=== PATIENT | female | born 1995 | race Caucasian/White ===

== ENCOUNTER 2021-10-16 12:34 | Outpatient (REF) | payer BC, SELFPAY ==
--- NOTE | 2021-10-16 10:15 | PAPFT_PTH ---
PATIENT: Ilsa Yi LOC: [facility] U#:[id number] AGE/SX: 26/F ROOM: RE10/16/[address]: Kaley Ramirez MD : [id number] BED: DIS: 10/16/2021 SPEC #: [id number] RECD: 10/16/21 13:02 STATUS: LYN REKal #: [id number] JOCELYN: 10/16/21 10:[address]: Kaley Ramirez DEPT: [facility] Cytology RECD BY: Latrice Bonilla Tissues: 1 - CX/ENDOCX FOR PAP SMEARS Procedures: PAP THIN PREP/UVM Screening Comments: [id number]
== END 2021-10-16 12:35 | disposition home or self-care (01) ==
LOC: LBN 12:34
PROVIDERS: Visit Provider Obstetrics & Gynecology
DX: Z12.4 Encounter for screening for malignant neoplasm of cervix (principal)
CPT/HCPCS: 88142

== ENCOUNTER 2021-11-08 15:46 | Outpatient (CLI) | payer BC, SELFPAY ==
[2021-11-08 16:34] LABS: HCG Quant, Pregnancy 272 mIU/mL (1-3)
== END 2021-11-08 15:47 | disposition home or self-care (01) ==
LOC: LBO 15:47
PROVIDERS: Visit Provider Obstetrics & Gynecology
DX: O26.851 Spotting complicating pregnancy, first trimester (principal); Z3A.01 Less than 8 weeks gestation of pregnancy
CPT/HCPCS: 36415; 84702

== ENCOUNTER 2021-11-10 02:30 | Outpatient (CLI) | payer BC, SELFPAY ==
[2021-11-10 16:30] LABS: HCG Quant, Pregnancy 594 mIU/mL (1-3)
== END 2021-11-10 16:05 | disposition home or self-care (01) ==
LOC: LBO 02:30
PROVIDERS: Obstetrics & Gynecology; Visit Provider Obstetrics & Gynecology
DX: O26.851 Spotting complicating pregnancy, first trimester (principal); Z3A.01 Less than 8 weeks gestation of pregnancy
CPT/HCPCS: 84702

== ENCOUNTER 2021-11-16 03:20 | Outpatient (CLI) | payer BC, SELFPAY ==
[2021-11-16 17:40] LABS: HCG Quant, Pregnancy 6067 mIU/mL (1-3)
== END 2021-11-16 03:21 | disposition home or self-care (01) ==
LOC: LBO 03:20
PROVIDERS: Obstetrics & Gynecology; Visit Provider Obstetrics & Gynecology
DX: O26.851 Spotting complicating pregnancy, first trimester (principal); Z3A.01 Less than 8 weeks gestation of pregnancy
CPT/HCPCS: 36415; 84702

== ENCOUNTER 2022-01-03 02:54 | Outpatient (CLI) | payer BC, SELFPAY ==
[2022-01-03 11:02] LABS: Kit/Specimen SENT
[2022-01-03 11:09] LABS: Abs Immature Grans 0.02 10^3/uL (0.0-0.06); Absolute Basophil Count 0.04 10^3/uL (0.0-0.2); Absolute Eosinophil Count 0.12 10^3/uL (0.0-0.7); Absolute Lymphocyte Count 2.32 10^3/uL (1.2-3.4); Absolute Monocyte Count 0.59 10^3/uL (0.1-0.8); Absolute Neutrophil Count 5.19 10^3/uL (1.2-6.7); Basophils % 0.5; Eosinophils % 1.4; HCT 37.7 % (36.0-46.0); HGB 13.3 g/dL (11.2-15.7); Immature Grans % 0.2; MCH 30.6 pg (27.0-33.0); MCHC 35.3 % (32.0-36.0); MCV 86.7 fL (80-95); MPV 9.7 fL (8.0-11.0); Monocytes % 7.1; Neutrophils % 62.8; Nucleated RBC 0 %; Platelet Count 236 10^3/uL (130-400); RBC 4.35 10^6/uL (3.93-5.22); RDW 12.7 % (11.7-14.6); RDW-SD 39.9 fL; WBC 8.28 10^3/uL (4.4-10.8)
[2022-01-03 11:59] LABS: TSH (W/Ref FT4) 3.27 uIU/mL (0.36-3.74)
[2022-01-04 09:58] LABS: Hepatitis B Surface Ag Negative (Negative)
[2022-01-04 10:21] LABS: Rubella IgG Ab (UVM) Positive (See Note); Varicella IgG Antibody Negative (See Note)
[2022-01-04 10:50] LABS: HIV-1/2 Ag & Ab Screen Negative (Negative)
[2022-01-04 11:33] LABS: Hepatitis C Ab w Rflx HCV PCR Negative (Negative)
[2022-01-07 21:59] LABS: Syphilis IgG w/Reflex Nonreactive (Nonreactive)
[2022-01-14 01:34] LABS: Specimen WB Whole Blood
[2022-01-14 23:37] LABS: Result Summary NEGATIVE; Specimen WB Whole Blood
== END 2022-01-03 02:55 | disposition home or self-care (01) ==
LOC: LBO 02:54
PROVIDERS: Advanced Practice Midwife; Obstetrics & Gynecology; Visit Provider Advanced Practice Midwife
DX: O26.851 Spotting complicating pregnancy, first trimester
CPT/HCPCS: 81329; 86787; 86803; 86850; 86900; 86901; 87340; 87389; 81220; 84443; 84702; 85025; 86762; 86780

== ENCOUNTER 2022-01-03 16:31 | Outpatient (REF) | payer BC, SELFPAY ==
[2022-01-03 13:24] LABS: *AMPHETAMINES SCREEN URINE Negative (Negative); *BARBITURATES SCREEN URINE Negative (Negative); *BENZODIAZEPINES SCREEN URINE Negative (Negative); Cannabinoids THC Negative (Negative); Cocaine Screen,Urine Negative (Negative); METHADONE URINE SCREEN Negative (Negative); OPIATES URINE SCREEN Negative (Negative); Tricyclic Antidepressants Negative (Negative)
[2022-01-09 09:43] LABS: Buprenorphine Negative ng/mL (Cutoff: 5.0); Norbuprenorphine Negative ng/mL (Cutoff: 2.5)
== END 2022-01-03 16:32 | disposition home or self-care (01) ==
LOC: LBN 16:31
PROVIDERS: Visit Provider Advanced Practice Midwife
DX: Z34.91 Encounter for supervision of normal pregnancy, unspecified, first trimester
CPT/HCPCS: 80307; 87086

== ENCOUNTER 2022-02-05 14:49 | Outpatient (REF) | payer BC, SELFPAY | END 2022-02-05 14:50 | disposition home or self-care (01) | LOC: LBN 14:49 | PROVIDERS: Visit Provider Advanced Practice Midwife | DX: O26.892 Other specified pregnancy related conditions, second trimester (principal); N89.8 Other specified noninflammatory disorders of vagina; Z3A.16 16 weeks gestation of pregnancy | CPT/HCPCS: 87480; 87510; 87660 ==

== ENCOUNTER 2022-02-19 02:42 | Outpatient (CLI) | payer BC, SELFPAY ==
[2022-02-19 09:16] LABS: FREE T4 0.88 ng/dL (0.76-1.46); TSH 5.23 uIU/mL (0.36-3.74)
[2022-02-19 17:42] LABS: Thyroperoxidase Antibody <28 U/mL (<=60)
[2022-02-21 13:48] LABS: AFP 90.2 ng/mL; Calculated age at EDD 27 years; Cigarette smoking status non-Smoker; GA used in risk estimate Scan estimate; IVF Pregnancy No; Initial or repeat testing Initial testing; Insulin dependent diabetes No; Maternal Weight 149 lbs; Number of Fetuses 1; Physician Phone Number 802-748-7300; RECOMMENDED FOLLOW UP None.; Results Summary Normal risk
== END 2022-02-19 02:43 | disposition home or self-care (01) ==
LOC: LBO 02:42
PROVIDERS: Visit Provider Advanced Practice Midwife
DX: Z34.92 Encounter for supervision of normal pregnancy, unspecified, second trimester (principal); R79.89 Other specified abnormal findings of blood chemistry
CPT/HCPCS: 36415; 82105; 84439; 84443; 86376

== ENCOUNTER 2022-04-02 17:35 | Outpatient (CLI) | payer BC, SELFPAY ==
--- NOTE | 2022-04-02 17:46 | PGE_ITS ---
Date of Service Date of service: 04/02/22 Time of Service: 17:46 Assessment and Plan Assessment and plan (1) Antepartum bleeding, second trimester: Status: Acute Assessment and plan: FHTs 130 confirmed with doppler. Reviewed precautions. I recommended rest this evening, avoiding intercourse and exercise x 1 week. Call with recurrence of bright red bleeding or no movement. Signs of labor reviewed. I suggested possibly taking a day off tomorrow to rest. Subjective Subjective Interval history since last seen: Ilsa is here with a complaint of a small amount of bright spotting. She has experienced bleeding earlier in the as well. She denies intercourse, exercise or straining. 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 She has not noticed movement today while she was working. Exam GI Palpation: soft
== END 2022-04-02 17:50 | disposition home or self-care (01) ==
LOC: BCD 17:37 → OBS 17:41
PROVIDERS: Visit Provider Advanced Practice Midwife
DX: O46.92 Antepartum hemorrhage, unspecified, second trimester (principal)

== ENCOUNTER 2022-04-30 03:02 | Outpatient (CLI) | payer BC, SELFPAY ==
[2022-04-30 12:14] LABS: HCT 35.5 % (36.0-46.0); HGB 12.2 g/dL (11.2-15.7); MCHC 34.4 % (32.0-36.0); MCV 90 fL (80-95); MPV 9.2 fL (8.0-11.0); Platelet Count 211 10^3/uL (130-400); RBC 3.94 10^6/uL (3.93-5.22); RDW 12.6 % (11.7-14.6); RDW-SD 41.4 fL; WBC 10.53 10^3/uL (4.4-10.8)
[2022-04-30 12:21] LABS: Glucose,1 Hr (Glucola) 87 mg/dL (80-140)
[2022-05-01 15:13] LABS: Chlamydia Result Negative (Negative); GC Result Negative (Negative)
== END 2022-04-30 03:03 | disposition home or self-care (01) ==
LOC: LBO 03:02
PROVIDERS: Advanced Practice Midwife; Visit Provider Advanced Practice Midwife
DX: O26.893 Other specified pregnancy related conditions, third trimester (principal); R30.0 Dysuria; R39.15 Urgency of urination; Z3A.28 28 weeks gestation of pregnancy
CPT/HCPCS: 36415; 82950; 85027; 87491; 87591; 87086

== ENCOUNTER 2022-04-30 16:47 | Outpatient (REF) | payer BC, SELFPAY | END 2022-04-30 16:48 | disposition home or self-care (01) | LOC: LBN 16:47 | PROVIDERS: Visit Provider Advanced Practice Midwife ==

== ENCOUNTER 2022-05-28 02:43 | Outpatient (CLI) | payer BC, SELFPAY ==
[2022-05-28 12:37] LABS: TSH (W/Ref FT4) 2.85 uIU/mL (0.36-3.74)
== END 2022-05-28 02:44 | disposition home or self-care (01) ==
LOC: LBO 02:43
PROVIDERS: Visit Provider Advanced Practice Midwife
DX: O26.893 Other specified pregnancy related conditions, third trimester (principal); R79.89 Other specified abnormal findings of blood chemistry; Z3A.32 32 weeks gestation of pregnancy
CPT/HCPCS: 36415; 84443

== ENCOUNTER → 2022-06-05 02:22 | Outpatient (CLI) | payer BC, SELFPAY ==
--- NOTE | 2022-06-05 09:15 | DI.US_ITS ---
Exam(s) US OB NORMAN WEIGHT EXAM: US OB NORMAN WEIGHT CLINICAL HISTORY: covid infection during ,U07.1. TECHNIQUE: Transabdominal obstetrical ultrasound performed. COMPARISON: No exams were available for comparison FINDINGS:: Number of fetuses: One. position: Vertex. Placental location: Anterior no evidence of previa. BIOMETRIC DATA: BPD: 86mm = 34+4 weeks HC: 307mm = 34+2 weeks AC: 292mm = 33+1 weeks FL: 67 mm = 34+ 4 weeks EFW: 2278 Gms = 49 % Composite Age: 34+ 1 weeks EDC by ultrasound: 16 July 2022 Heart Rate: 155 BPM Amniotic fluid index: 14.0 cm. Amount of fluid is visually within normal limits. IMPRESSION: size and weight are within the expected range. DATA REPOSITORY:
== END ==
PROVIDERS: Visit Provider Advanced Practice Midwife
DX: U07.1 COVID-19; O98.513 Other viral diseases complicating pregnancy, third trimester; O46.93 Antepartum hemorrhage, unspecified, third trimester; Z3A.34 34 weeks gestation of pregnancy
CPT/HCPCS: 76816

== ENCOUNTER 2022-06-25 15:41 | Outpatient (REF) | payer BC, SELFPAY | END 2022-06-25 15:42 | disposition home or self-care (01) | LOC: LBN 15:41 | PROVIDERS: Visit Provider Advanced Practice Midwife | DX: Z34.93 Encounter for supervision of normal pregnancy, unspecified, third trimester (principal); Z36.85 Encounter for antenatal screening for Streptococcus B; Z3A.36 36 weeks gestation of pregnancy | CPT/HCPCS: 87081 ==

== ENCOUNTER 2022-07-25 04:01 | Inpatient (IN) | payer BC, SELFPAY ==
[2022-07-25] VITALS (32 sets, daily range): BP systolic 105–136; BP diastolic 62–90; PULSE 67–85; RESP 18–20; TEMP 36.8–37.1; O2SAT 96–98; BMI 26.1
--- NOTE | 2022-07-25 03:56 | W.PM.OBHPL1 ---
Date of service: 07/25/22 Time of Service: 03:56 Assessment and Plan Assessment and plan (1) Uterine contractions: Status: Acute Assessment and plan: 1. will do NST and assess contraction pattern, once reactive will allow for intermittent doppler assessment. (2) Vaginal discharge in third trimester, antepartum: Status: Acute Assessment and plan: 1. ROM + obtained, expect confirmation of ROM 2. Will admit once confirmed and draw admission labs with TSH and CMP (due to mild BP elevation on arrival) as well as screen for COVID 3. Expectant management at this time. Low risk for shoulder dystocia, pre-eclampsia and PPH on arrival. 4. Expect NVD. KH OB-HPI Labor/Delivery History of Present Illness Reason for Visit: Rule out labor Chief Complaint: Uterine Contractions; Suspected Rupture of Membranes , Associated Signs and Symptoms of Suspected ROM: reported gush of fluid and need to change pad due to leaking. KH . ZACH Calculator Estimated Delivery Date Method Current WG Current Estimate 07/20/22 Ultrasound #1 40w 5d Other Estimates 07/22/22 Ultrasound #2 40w 3d 07/20/22 Conception 40w 5d Comments: Reports gush of fluid at midnight and then again several times after that. Clear fluid. Had enough fluid on her adult diaper she was wearing to change as well. Reports contractions began shortly after that and have increased in intensity and frequency. JAYCE History of Present Expected Delivery Route/Plan - CNM FOB/ - Marlo Yi (first child) BB yes to circ wishes include use of tub, shower, pt or her mom to cut cord Varicella Non-Immune, offer vaccine PP GBS negative Specific Issues/Plan 1. Pt & vaccinated, pt also boosted, both had COVID infection, tested 12/04/21 @ 7wks 1a. 33 week growth US scheduled for 06/05/22: wt is 49th percentile, NORMAN 14 2. Desires all genetic screening & AFP single marker: cfDNA low risk x5 male fetus, SMA/CF neg 3. FOB has spina bifida occulta, offered [facility] level 2 ultrasound, pt declines. AFP drawn 02/05= nml risk for NTD 4. Initial OB: TSH 3.27- Discuss with patient, TSH and T4 drawn 02/19 - TSH- 5.33, T4- 0.88; TPO nml 4a. TSH 2.85 at 32 weeks, no further testing needed due to improvement without medications per consult with Dr. Stover. 5. First trimester spotting, suggestion of heart-shaped uterus on early ultrasound 5a. persistent vaginal bleeding, vaginal pathogen screen 02/05=negative 6. Varicella non-immune, discussed w/pt, she desires vaccination 7. Pt requests LC consult, ordered 05/28 - met with Elen CRAWFORD Assessment: History Reviewed & Current Review of Systems All systems reviewed & are unremarkable except as noted in HPI and below (vaginal discharge since 0001.) PFSH All Active Problems (Updated 07/25/22 @ 04:08 by Gena Valencia CNM) Vaginal discharge in third trimester, antepartum (Acute) Uterine contractions (Acute) COVID-19 virus infection (Acute) Antepartum bleeding, second trimester (Acute) Elevated TSH (Acute) Susceptible to varicella (non-immune), currently (Acute) (Acute) Medical History Lipoma Pelvic pain Vaginal discharge during , antepartum Surgical History Hx of tonsillectomy Social History Smoking/Tobacco Use Status: Never Smoking risk assessment performed?: Yes Alcohol Intake: current Alcohol Intake frequency: a few times a month Drug use: Never Substance use type: does not use Adopted: No Caregiver/Support person: No Foster care: No Household members: spouse Housing: house Communication Needs: None Education Level: college Do you need help understanding health information?: Never 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 and animals: Yes Pets and animals: dog(s) Sexually active: Yes Do you think of yourself as: straight/heterosexual Current gender identity: female What is your relationship status?: How often do you talk on the phone with friends or family?: three or more times per week How often do you attend jehovah's witness or alevism services?: decline to answer Do you belong to any clubs or organized social groups?: yes Panel score (0-1 are the most socially isolated patients): 3 What type of physical activity do you participate in: weight lifting Frequency: 3-4 times per week Seatbelt use: always Helmet use: Yes Drive intox or ride w/intox dedicated local truck driver: No Water heater temp set <120 deg: Yes Working smoke detector in home: Yes Fire extinguisher in home: Yes Carbon monox detector in home: Yes Firearms in home: Yes Do you feel safe at home: Yes Do you feel safe in your relationship?: Yes Victim of physical abuse: No Victim of emotional abuse: No Victim of sexual abuse: No Female Reproductive History Menstrual Duration of menses: 6-7 days control method: natural family planning History History 1 Para 0 Hx # Term Pregnancies 0 Multiple births 0 Hx # Pregnancies 0 Ectopic pregnancies 0 AB induced 0 Hx Number of Living Children 0 AB spontaneous 0 Meds Allergies and Home Medications Allergies Allergy/AdvReac Type Severity Reaction Status Date / Time No Known Allergies Allergy Verified 07/25/22 04:04 Home Medications Medication Instructions Recorded Confirmed Type prenat.vits,roshan,syg-mhfo-cqnsi 1 tab PO DAILY 10/16/21 07/16/22 History omega-3 fatty acids 1,250 mg 1,250 mg PO DAILY 03/05/22 07/16/22 History capsule Lactobacillus 25 billion 1 cap PO DAILY 04/05/22 07/16/22 History cell-Bifido 25 billion [id number]-[id number] capsule (Women's Probiotic) vitamin D3 25 mcg-vitamin K2 20 cap PO PRN 04/05/22 07/16/22 History mcg-olive leaf extract 250 mg capsule Exam Physical Exam Vital Signs Reviewed: Yes Narrative: Mild BP elevation. Plan will be to check pre-eclampsia labs with blood work once ROM plus is verified. KH Constitutional Constitutional: mild distress (anxious and excited about labor) Detailed Labor and Delivery Exam Dilation: 3 Effacement (%): 90 station: -1 Position: BONNY Cervix position: posterior Consistency: soft Rodriguez Score: Cervical Points Exam 0 1 2 3 Dilation Closed 1-2cm 3-4 cm 5-6cm Effacement 0-30% 40-50% 60-70% 80% Consistency Firm Medium Soft Station -3 -2 -1,0 +1,+2 Position Posterior Mid Anterior RODRIGUEZ Score(Cervical Ripeness Score): 9 Amniotic Membrane Status: Ruptured Rupture Method: Spontaneous Amniotic Fluid: Clear Contraction Frequency(min): 2-3 Contraction Duration(sec): 40-60 Contraction Intensity: Mild/Moderate Fetus A Heart Rate Baseline: 120 Monitor Accelerations: 10 X 10 Monitor Decelerations: None Variability: Minimal (1-5 BPM) Est. Weight: 7 lb Date of Membrane Rupture: 07/25/22 Time of Membrane Rupture: 00:01 HEENT Exam HEENT Exam: Normal Neck Exam Neck Exam: Normal (on visual exam) Chest/Brest/Axilla Exam Chest Exam: Not Done Breast Exam Breast Exam: Not Done Respiratory Exam Respiratory Exam: Normal Cardiovascular Exam Cardiovascular Exam: Normal Abdominal Exam Abdominal Exam: Normal (gravid uterus, size equals dates) Rectal Exam Rectal Exam: Not Done Exam Exam: Normal (3/90/-1 posterior, soft. No fluid with exam. ROM + pending.) Extremities Exam Extremities Exam: Normal Back/Spine/Pelvis Exam Back Exam: Normal Pelvis Adequate: Yes Skin Exam Skin Exam: Normal Neurological Exam Neurological Exam: Normal Psychiatric Exam Psychiatric Exam: Normal Results Results Group Beta Strep: Negative Blood Type: A+ Rubella Status: Immune Varicella Immunity: Nonimmune Lab Results: Panorama CfDNA low risk, male. HIV/HepB/HepC/Syphillis/GC CT negative. TSH 2.85 on 05/28 and 1 hour glucose 87 Risk Assessment Risk for Shoulder Dystocia Historical/Initial OB: NEGATIVE FOR: Pelvic Abnormality, Pre- BMI>30, Previous Shoulder Dystocia or Previous Macrosomia Increased Risk?: No Delivery Plan @ 36wks: NVD expected. Delivery Plan @ 40 wks: NVD Risk for Pre-Eclampsia Date Initiated/Initials: not indicated. JK Yes, if one or more: NEGATIVE FOR: Hx Pre-E/Gest HTN, Chronic HTN, Multiple Gestation, Pre-gestational DM, Renal Disease, Systemic Lupus or APA Syndrome Yes, if 2 or more: POSITIVE FOR: Nulliparity; NEGATIVE FOR: Age>= 35 yrs, >10yr btwn pregnancies, BMI>30, ethinicty, Mother/Sister w/ Pre-E or Previous IUGR Risk for Post- Hemorrhage Initial: NEGATIVE FOR: Multiple Gestation, Previous PPH, Known Clotting Deficiency, Grand Multiparity or Anticoagulation At Risk?: No Counseled re: Active Management: Yes Date/Initials: 07/25/22 Risks Reviewed Risks Reviewed Upon Admission: Yes
[2022-07-25 04:35] LABS: ROM Plus Positive
--- NOTE | 2022-07-25 04:45 | W.PM.OBNL1 ---
Date of service: 07/25/22 Time of Service: 04:45 Informed Consent Informed Consent: Other (Nitrous Oxide) Pelvic Exam Comments: VE deferred Contractions Monitor Mode: Palpation Contraction Frequency(min): 3 Intensity: Moderate Fetus A Monitor: External (US) (reactive and reassuring prior to discontinuing EFM) Heart Rate Baseline: 120 Variability: Moderate (6-25 BPM) Categories: Category I Accelerations: 15 X 15 Decelerations: None Amniotic Membrane Status: Ruptured (confirmed with ROM +) Rupture Method: Spontaneous Amniotic Fluid: Clear Date of Membrane Rupture: 07/25/22 Time of Membrane Rupture: 00:01 Assessment and Plan Assessment and plan (1) Uterine contractions: Status: Acute Assessment and plan: 1. Confirmation of ROM obtained 2. Admitted and will do labs, intermittent doppler FHR and assessment now that reactive NST is obtained. 3. Nitrous Oxide for pain management as needed 4. Expect NVD. Objective Laboratory Results Membranes Rupture Positive 07/25/22 04:00 Subjective Interval history since last seen: working well with contractions. discussing option of Nitrous Oxide for pain management. Interventions Pain Management Interventions: Comfort Measures , Birthing Ball, Breathing/Relaxation Techniques and Position Change and Nitrous Oxide , reviewed use of Nitrous Oxide if needed, verbalizes understanding. JAYCE .
[2022-07-25 05:25] LABS: ALT 18 U/L (14-59); AST 20 U/L (15-37); Albumin 2.9 g/dL (3.4-5.0); Alkaline Phosphatase 132 U/L (46-116); Anion Gap 10.9 mmol/L (3-11); BUN 12 mg/dL (7-18); Bilirubin, Total 0.3 mg/dL (0.2-1.0); CO2 22.1 mmol/L (21.0-32.0); CREATININE 0.9 mg/dL (0.55-1.02); Calcium 8.9 mg/dL (8.5-10.1); Chloride 103 mmol/L (98-107); Glucose 121 mg/dL (74-106); Potassium 3.8 mmol/L (3.5-5.1); Sodium 136 mmol/L (136-145); Total Protein 7.3 g/dL (6.4-8.2)
[2022-07-25 05:26] LABS: Source Nasal/Nares
[2022-07-25 05:26] LABS: HCT 38.1 % (36.0-46.0); HGB 13.3 g/dL (11.2-15.7); MCH 30.6 pg (27.0-33.0); MCHC 34.9 % (32.0-36.0); MCV 88 fL (80-95); MPV 11.2 fL (8.0-11.0); Platelet Count 160 10^3/uL (130-400); RBC 4.34 10^6/uL (3.93-5.22); RDW 12.4 % (11.7-14.6); RDW-SD 39.8 fL; WBC 12.48 10^3/uL (4.4-10.8)
[2022-07-25 05:29] LABS: COVID-19 PCR Negative (Negative)
[2022-07-25 05:36] LABS: TSH (W/Ref FT4) 7.26 uIU/mL (0.36-3.74)
[2022-07-25 05:53] LABS: FREE T4 0.95 ng/dL (0.76-1.46)
--- NOTE | 2022-07-25 09:38 | W.PM.OBNL1 ---
Date of service: 07/25/22 Time of Service: 09:38 Informed Consent Informed Consent: Regional Anesthesia (epidural reviewed) and Other (Nitrous Oxide) Pelvic Exam Dilation: 4 Effacement (%): 90 station: -1 Cervix Position: mid Consistency: soft Contractions Monitor Mode: Palpation Contraction Frequency(min): 2-3 Contraction Duration(sec): 60 Intensity: Moderate/Strong Fetus A Monitor: Doppler (reassuring heart rate documented) Assessment and Plan Assessment and plan (1) Normal labor: Status: Acute Assessment and plan: 1. current pain management with behavioral methods is no longer effective as is nitrous oxide. We discussed alternatives of IV pain medication or epidural. Patient is not interested in the sleepiness of IV pain medication and requests. Epidural. 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 KH Objective Abnormal lab results 07/25/22 07/25/22 07/25/22 Range/Units 04:53 04:53 04:53 WBC 12.48 H (4.4-10.8) 10^3/uL MPV 11.2 H (8.0-11.0) fL Glucose 121 H (74-106) mg/dL Alkaline Phosphatase 132 H (46-116) U/L Albumin 2.9 L (3.4-5.0) g/dL TSH 7.26 H (0.36-3.74) uIU/mL Temp Pulse Resp BP 98.6 F 83 18 132/85 07/25/22 06:52 07/25/22 04:58 07/25/22 04:58 07/25/22 04:58 Laboratory Results WBC 12.48 10^3/uL (4.4-10.8) H 07/25/22 04:53 RBC 4.34 10^6/uL (3.93-5.22) 07/25/22 04:53 Hgb 13.3 g/dL (11.2-15.7) 07/25/22 04:53 Hct 38.1 % (36.0-46.0) 07/25/22 04:53 MCV 88 fL (80-95) 07/25/22 04:53 MCH 30.6 pg (27.0-33.0) 07/25/22 04:53 MCHC 34.9 % (32.0-36.0) 07/25/22 04:53 RDW 12.4 % (11.7-14.6) 07/25/22 04:53 Plt Count 160 10^3/uL (130-400) 07/25/22 04:53 MPV 11.2 fL (8.0-11.0) H 07/25/22 04:53 Sodium 136 mmol/L (136-145) 07/25/22 04:53 Potassium 3.8 mmol/L (3.5-5.1) 07/25/22 04:53 Chloride 103 mmol/L (98-107) 07/25/22 04:53 Carbon Dioxide 22.1 mmol/L (21.0-32.0) 07/25/22 04:53 Anion Gap 10.9 mmol/L (3-11) 07/25/22 04:53 BUN 12 mg/dL (7-18) 07/25/22 04:53 Creatinine 0.9 mg/dL (0.55-1.02) 07/25/22 04:53 Estimated GFR/1.73 m2 >= 60.00 (mL/min/1.73m2) 07/25/22 04:53 Glucose 121 mg/dL (74-106) H 07/25/22 04:53 Calcium 8.9 mg/dL (8.5-10.1) 07/25/22 04:53 Total Bilirubin 0.3 mg/dL (0.2-1.0) 07/25/22 04:53 AST 20 U/L (15-37) 07/25/22 04:53 ALT 18 U/L (14-59) 07/25/22 04:53 Alkaline Phosphatase 132 U/L (46-116) H 07/25/22 04:53 Total Protein 7.3 g/dL (6.4-8.2) 07/25/22 04:53 Albumin 2.9 g/dL (3.4-5.0) L 07/25/22 04:53 TSH 7.26 uIU/mL (0.36-3.74) H 07/25/22 04:53 Free T4 0.95 ng/dL (0.76-1.46) 07/25/22 04:53 Membranes Rupture Positive 07/25/22 04:00 COVID-19 Source Nasal/Nares 07/25/22 04:00 SARS-CoV-2 (PCR) Negative (Negative) 07/25/22 04:00 Patient ABO/Rh A Positive 07/25/22 04:53 Antibody Screen NEGATIVE 07/25/22 04:53 Subjective Interval history since last seen: Patient requests review of additional pain management options. Nirtous and shower / massage are no longer effective enough. We reviewed IV pain mediation and or epidural as additional options. Patient desires eipdural but will consider turning it off when pushing as she is fearful that she will push too hard and have laceration. I have reviewed both options of IV pain medication and epidural with risks, benefits, potential side effects and desired outcome. Patient has decided she would like epidural. DERECK paged. KH Results Hemoglobin/Hematocrit: Hgb 13.3 g/dL (11.2-15.7) 07/25/22 04:53 Hct 38.1 % (36.0-46.0) 07/25/22 04:53 Abnormal Lab Findings: Abnormal Labs 07/25/22 07/25/22 07/25/22 04:53 04:53 04:53 WBC 12.48 H MPV 11.2 H Glucose 121 H Alkaline Phosphatase 132 H Albumin 2.9 L TSH 7.26 H
--- NOTE | 2022-07-25 09:45 | ANES.PREOP_ITS ---
General Info Date of Service Date Performed: 07/25/22 Height: 5 ft 10 in Weight: 82.554 kg Body Mass Index (BMI): 26.1 Meds Allergies and Home Medications Allergies Allergy/AdvReac Type Severity Reaction Status Date / Time No Known Allergies Allergy Verified 07/25/22 04:04 Home Medication Medication Instructions Recorded prenat.vits,roshan,[id number]-cbreh 1 tab PO DAILY 10/16/21 omega-3 fatty acids 1,250 mg 1,250 mg PO DAILY 03/05/22 capsule Lactobacillus 25 billion 1 cap PO DAILY 04/05/22 cell-Bifido 25 billion dzim-IES-[id number] capsule (Women's Probiotic) vitamin D3 25 mcg-vitamin K2 20 cap PO PRN 04/05/22 mcg-olive leaf extract 250 mg capsule Current Visit Medications: Current Medications Generic Name Dose Route Start Last Admin Trade Name Freq PRN Reason Stop Dose Admin Ringer's Solution 1,000 mls @ 125 mls/hr 07/25/22 04:45 IV INFUSION PRN maternal indications IV Miscellaneous Supplies 1 each 07/25/22 04:41 Iv Access IV DIRECTED PRN indications Ondansetron HCl 4 mg 07/25/22 05:05 Ondansetron 4 Mg/2 Ml Vial IVP Q4H PRN PRN Pantoprazole Sodium 40 mg 07/25/22 04:16 Pantoprazole 40 Mg Tabcr PO ONCE PRN indigestion Sodium Chloride 0 ml 07/25/22 04:41 Normal Saline Flush 10 Ml Syr IVP PRN PRN PFSH Active Problems Active Problems: Problem Status Onset Code Normal labor O80, Z37.9 Vaginal discharge in third trimester, antepartum O26.893, N89.8 Uterine contractions O47.9 COVID-19 virus infection U07.1 Antepartum bleeding, second trimester O46.92 Elevated TSH R79.89 Susceptible to varicella (non-immune), currently O09.899, Z28.3 Z34.90 Medical History Medical History Lipoma Pelvic pain Vaginal discharge during , antepartum Surgical History Surgical History Hx of tonsillectomy Tobacco Smoking/Tobacco Use Status: Never Alcohol Alcohol Intake: current Alcohol intake frequency: a few times a month Substance Use Substance use: Never Substance use type: does not use Prental History History 1 Para 0 Hx # Term Pregnancies 0 Multiple births 0 Hx # Pregnancies 0 Ectopic pregnancies 0 AB induced 0 Hx Number of Living Children 0 AB spontaneous 0 Vital Signs and Lab Results Vital Signs Most Recent Vital Signs in EMR: Most Recent Vital Signs Temp Pulse Resp BP 37.0 C 83 18 132/85 07/25/22 06:52 07/25/22 04:58 07/25/22 04:58 07/25/22 04:58 Lab Results Result Diagrams: 07/25/22 04:53 07/25/22 04:53 Blood Type / Crossmatch: Patient ABO/Rh A Positive 07/25/22 Antibody Screen NEGATIVE 07/25/22 Complete Blood Count: White Blood Count 12.48 10^3/uL (4.4-10.8) H 07/25/22 04:53 Red Blood Count 4.34 10^6/uL (3.93-5.22) 07/25/22 04:53 Hemoglobin 13.3 g/dL (11.2-15.7) 07/25/22 04:53 Hematocrit 38.1 % (36.0-46.0) 07/25/22 04:53 Platelet Count 160 10^3/uL (130-400) 07/25/22 04:53 Complete Metabolic Panel: Sodium Level 136 mmol/L (136-145) 07/25/22 04:53 Potassium Level 3.8 mmol/L (3.5-5.1) 07/25/22 04:53 Chloride Level 103 mmol/L (98-107) 07/25/22 04:53 Carbon Dioxide Level 22.1 mmol/L (21.0-32.0) 07/25/22 04:53 Blood Urea Nitrogen 12 mg/dL (7-18) 07/25/22 04:53 Creatinine 0.9 mg/dL (0.55-1.02) 07/25/22 04:53 Estimated GFR/1.73 m2 >= 60.00 (mL/min/1.73m2) 07/25/22 04:53 Calcium Level 8.9 mg/dL (8.5-10.1) 07/25/22 04:53 Albumin 2.9 g/dL (3.4-5.0) L 07/25/22 04:53 Glucose Level 121 mg/dL (74-106) H 07/25/22 04:53 Liver Function Panel: Alanine Aminotransferase (ALT/SGPT) 18 U/L (14-59) 07/25/22 04: 53 Aspartate Amino Transf (AST/SGOT) 20 U/L (15-37) 07/25/22 04:53 Coagulation Panel: No Data to Display Cardiac Panel: No Data to Display Arterial Blood Gas: No Data to Display Venous Blood Gas: No Data to Display Pancreas Panel: No Data to Display Thyroid Panel: Thyroid Stimulating Hormone (TSH) 7.26 uIU/mL (0.36-3.74) H 07/25/22 04:53 Infectious Disease: Coronavirus (COVID-19)(PCR) Negative (Negative) 07/25/22 04:00 Coronavirus 2019 Source Nasal/Nares 07/25/22 04:00 Blood Cultures: No Data to Display Toxicology Panel: No Data to Display Panel: No Data to Display Anesthesia Assessment and Plan Anesthesia History Personal History: No History of Anesthesia Complications Family History: No Family History of Anesthesia Complications Exercise Tolerance Exercise Tolerance: Metabolic Equivalents>4 Cardiac & Pulmonary Exam Cardiac Exam: Normal S1/S2 Heart Sounds Pulmonary Exam: Clear Bilateral Breath Sounds Implantable Cardiac Device Does patient have a Pacemaker or an ICD?: No Airway Exam Known Difficult Airway: No Mallampati Class: 2 Mouth Opening: Normal (> 3cm) Thyromental Distance: Greater than 3 cm Neck Range of Motion: Full ROM Neck Circumference: Normal Teeth Condition: Normal Dentition ASA Classification ASA Score: ASA 2 Emergency Case?: No NPO Status NPO Status: Full Stomach Status Status: Other Anesthesia Plan Resuscitation Status: Full Code Anesthesia Technique: Epidural Anesthesia Airway Planned: Natural Airway Pain Management: Epidural Monitors Used: Standard Monitors Preoperative Comments:: 26 yo female requested epidural for labor pain. Sig PMHx: denies major. Plt 160
[2022-07-25] MEDS: Normal Saline Flush 10 ML SYR IVP (10:00)
[2022-07-25] MEDS: Lactated Ringers 1,000 ML 125 ML IV ×2 (10:19→17:27)
[2022-07-25] MEDS: FentaNYL/ROPIvacaine 2 mcg/ml and 0.1% 200 ML CADD Cassette EP ×2 (10:30→19:36)
--- NOTE | 2022-07-25 10:47 | W.ANESNEU ---
Epidural/Spinal Catheter Date Performed: 07/25/22 Procedure Start: 10:24 Procedure Stop: 10:33 Requesting Provider: Gena Valencia Procedure Location: Obstetrics Reason Performed: Labor Epidural Standard Monitors Applied: ECG, Blood Pressure and SpO2 Patient Position: Sitting Sedation Given (Indicate Dose Given): No Sedation given Patient Mental Status: Awake Sterility: Hand Hygiene, Surgical Cap, Surgical Mask, Sterile Gloves, Sterile Drape/Sheet and Chlorhexidine Procedure Location: L3-L4 Interspace Epidural Needle: Tuohy 18 Gauge Needle Length: 3.5 Inch Needle Approach: Midline Epidural Procedure: Skin Prepped, 1% Lidocaine to skin and subcutaneous tissue with 25G needle, JOAN to Saline Used and Epidural Catheter Placed Catheter Placed?: Catheter Placed Test Dose (Indicate Dose Given): 3ml 1.5% Lidocaine with 1:200K Epinephrine Given Loss of Resistance Depth (cm): 5 Catheter depth at skin (cm): 10 Dressing: Sorbaview Dressing Placed and Mastisol Used Epidural Provider Bolus (Indicate Dose Given): Total Ropivacaine 0.1% with Fentanyl 2mcg/ml Given from pump. (ml) (7 mL + 5 mL) Dose:: 12 mL Additives (Indicate Dose Given ): None Infusion Medication: Medication Infusion Began Medication Infusion: Ropivacaine 0.1% with Fentanyl 2mcg/ml Maintenance Infusion Rate (ml/hour): 10 PCEA Bolus Dose (ml): 5 Block Level: N/A Paresthesia: None Ultrasound: Used to mildred site Number of Attempts (See previous attempts in note section): 1 Procedure Tolerated: No Complications and Patient tolerated well Procedure Outcome: Successful Procedure Comment:: More dense on the left, positioned to right side with improved relief. Performed By: Chaitanya Mon
--- NOTE | 2022-07-25 11:16 | W.PM.OBNL1 ---
Date of service: 07/25/22 Time of Service: 11:16 Informed Consent Informed Consent: Regional Anesthesia (epidural reviewed) and Other (Nitrous Oxide) Contractions Monitor Mode: External Contraction Frequency(min): 4 Contraction Duration(sec): 60 Intensity: Moderate Fetus A Monitor: External (US) Heart Rate Baseline: 120 Variability: Moderate (6-25 BPM) Categories: Category I Accelerations: 15 X 15 Decelerations: None Assessment and Plan Assessment and plan (1) Normal labor: Status: Acute Assessment and plan: 1. Good relief from epidural 2. Patient is trying to nap, plan to repeat VE at 1300 unless otherwise indicated by maternal status. KH (2) Elevated TSH: Status: Acute Assessment and plan: 1. TSH today 7.26, patient is asymptomatic. Consult with Dr. Stover done, no intervention at this time required. Will plan to repeat at 6 week PP visit and refer as indicated. JAYCE Objective Abnormal lab results 07/25/22 07/25/22 07/25/22 Range/Units 04:53 04:53 04:53 WBC 12.48 H (4.4-10.8) 10^3/uL MPV 11.2 H (8.0-11.0) fL Glucose 121 H (74-106) mg/dL Alkaline Phosphatase 132 H (46-116) U/L Albumin 2.9 L (3.4-5.0) g/dL TSH 7.26 H (0.36-3.74) uIU/mL Temp Pulse Resp BP Pulse Ox 98.6 F 73 18 131/72 97 07/25/22 06:52 07/25/22 10:58 07/25/22 04:58 07/25/22 10:58 07/25/22 10:56 Laboratory Results WBC 12.48 10^3/uL (4.4-10.8) H 07/25/22 04:53 RBC 4.34 10^6/uL (3.93-5.22) 07/25/22 04:53 Hgb 13.3 g/dL (11.2-15.7) 07/25/22 04:53 Hct 38.1 % (36.0-46.0) 07/25/22 04:53 MCV 88 fL (80-95) 07/25/22 04:53 MCH 30.6 pg (27.0-33.0) 07/25/22 04:53 MCHC 34.9 % (32.0-36.0) 07/25/22 04:53 RDW 12.4 % (11.7-14.6) 07/25/22 04:53 Plt Count 160 10^3/uL (130-400) 07/25/22 04:53 MPV 11.2 fL (8.0-11.0) H 07/25/22 04:53 Sodium 136 mmol/L (136-145) 07/25/22 04:53 Potassium 3.8 mmol/L (3.5-5.1) 07/25/22 04:53 Chloride 103 mmol/L (98-107) 07/25/22 04:53 Carbon Dioxide 22.1 mmol/L (21.0-32.0) 07/25/22 04:53 Anion Gap 10.9 mmol/L (3-11) 07/25/22 04:53 BUN 12 mg/dL (7-18) 07/25/22 04:53 Creatinine 0.9 mg/dL (0.55-1.02) 07/25/22 04:53 Estimated GFR/1.73 m2 >= 60.00 (mL/min/1.73m2) 07/25/22 04:53 Glucose 121 mg/dL (74-106) H 07/25/22 04:53 Calcium 8.9 mg/dL (8.5-10.1) 07/25/22 04:53 Total Bilirubin 0.3 mg/dL (0.2-1.0) 07/25/22 04:53 AST 20 U/L (15-37) 07/25/22 04:53 ALT 18 U/L (14-59) 07/25/22 04:53 Alkaline Phosphatase 132 U/L (46-116) H 07/25/22 04:53 Total Protein 7.3 g/dL (6.4-8.2) 07/25/22 04:53 Albumin 2.9 g/dL (3.4-5.0) L 07/25/22 04:53 TSH 7.26 uIU/mL (0.36-3.74) H 07/25/22 04:53 Free T4 0.95 ng/dL (0.76-1.46) 07/25/22 04:53 Membranes Rupture Positive 07/25/22 04:00 COVID-19 Source Nasal/Nares 07/25/22 04:00 SARS-CoV-2 (PCR) Negative (Negative) 07/25/22 04:00 Patient ABO/Rh A Positive 07/25/22 04:53 Antibody Screen NEGATIVE 07/25/22 04:53 Vital Signs Reviewed: Yes Subjective Interval history since last seen: Much more comfortable status post epidural. Is experiencing some bloody show, no rectal pressure. Is trying to nap at this time. Results Hemoglobin/Hematocrit: Hgb 13.3 g/dL (11.2-15.7) 07/25/22 04:53 Hct 38.1 % (36.0-46.0) 07/25/22 04:53 Abnormal Lab Findings: Abnormal Labs 07/25/22 07/25/22 07/25/22 04:53 04:53 04:53 WBC 12.48 H MPV 11.2 H Glucose 121 H Alkaline Phosphatase 132 H Albumin 2.9 L TSH 7.26 H
--- NOTE | 2022-07-25 14:01 | W.PM.OBNL1 ---
Date of service: 07/25/22 Time of Service: 13:54 Informed Consent Informed Consent: Regional Anesthesia (epidural reviewed) and Other (Nitrous Oxide) Pelvic Exam Dilation: 6 Effacement (%): 90 station: -1 Cervix Position: mid Consistency: soft Contractions Monitor Mode: External (VE done during contraction to assess, moderate to strong ) Contraction Frequency(min): 3-4 Contraction Duration(sec): 60 Intensity: Moderate/Strong Fetus A Monitor: External (US) Heart Rate Baseline: 120 Variability: Moderate (6-25 BPM) Categories: Category I Accelerations: 15 X 15 Decelerations: None Assessment and Plan Assessment and plan (1) Normal labor: Status: Acute Assessment and plan: 1. VE done during contraction. Cervix 6 cm then with head compressing cervix it becomes tighter at 4.5 cm. We will attempt frequent position changes for 1-2 hours and reassess for progress. 2. Using bedside commode to attempt to empty bladder and will consider zaidi if unable to void. KH Objective Abnormal lab results 07/25/22 07/25/22 07/25/22 Range/Units 04:53 04:53 04:53 WBC 12.48 H (4.4-10.8) 10^3/uL MPV 11.2 H (8.0-11.0) fL Glucose 121 H (74-106) mg/dL Alkaline Phosphatase 132 H (46-116) U/L Albumin 2.9 L (3.4-5.0) g/dL TSH 7.26 H (0.36-3.74) uIU/mL Temp Pulse Resp BP Pulse Ox 98.6 F 78 18 114/69 98 07/25/22 06:52 07/25/22 13:14 07/25/22 13:01 07/25/22 13:14 07/25/22 13:01 Laboratory Results WBC 12.48 10^3/uL (4.4-10.8) H 07/25/22 04:53 RBC 4.34 10^6/uL (3.93-5.22) 07/25/22 04:53 Hgb 13.3 g/dL (11.2-15.7) 07/25/22 04:53 Hct 38.1 % (36.0-46.0) 07/25/22 04:53 MCV 88 fL (80-95) 07/25/22 04:53 MCH 30.6 pg (27.0-33.0) 07/25/22 04:53 MCHC 34.9 % (32.0-36.0) 07/25/22 04:53 RDW 12.4 % (11.7-14.6) 07/25/22 04:53 Plt Count 160 10^3/uL (130-400) 07/25/22 04:53 MPV 11.2 fL (8.0-11.0) H 07/25/22 04:53 Sodium 136 mmol/L (136-145) 07/25/22 04:53 Potassium 3.8 mmol/L (3.5-5.1) 07/25/22 04:53 Chloride 103 mmol/L (98-107) 07/25/22 04:53 Carbon Dioxide 22.1 mmol/L (21.0-32.0) 07/25/22 04:53 Anion Gap 10.9 mmol/L (3-11) 07/25/22 04:53 BUN 12 mg/dL (7-18) 07/25/22 04:53 Creatinine 0.9 mg/dL (0.55-1.02) 07/25/22 04:53 Estimated GFR/1.73 m2 >= 60.00 (mL/min/1.73m2) 07/25/22 04:53 Glucose 121 mg/dL (74-106) H 07/25/22 04:53 Calcium 8.9 mg/dL (8.5-10.1) 07/25/22 04:53 Total Bilirubin 0.3 mg/dL (0.2-1.0) 07/25/22 04:53 AST 20 U/L (15-37) 07/25/22 04:53 ALT 18 U/L (14-59) 07/25/22 04:53 Alkaline Phosphatase 132 U/L (46-116) H 07/25/22 04:53 Total Protein 7.3 g/dL (6.4-8.2) 07/25/22 04:53 Albumin 2.9 g/dL (3.4-5.0) L 07/25/22 04:53 TSH 7.26 uIU/mL (0.36-3.74) H 07/25/22 04:53 Free T4 0.95 ng/dL (0.76-1.46) 07/25/22 04:53 Membranes Rupture Positive 07/25/22 04:00 COVID-19 Source Nasal/Nares 07/25/22 04:00 SARS-CoV-2 (PCR) Negative (Negative) 07/25/22 04:00 Patient ABO/Rh A Positive 07/25/22 04:53 Antibody Screen NEGATIVE 07/25/22 04:53 Subjective Interval history since last seen: was able to nap for a short period of time. Is much more comfortable now. Will try to get out of bed to bedside commode to encourage voiding. VE done. KH Results Hemoglobin/Hematocrit: Hgb 13.3 g/dL (11.2-15.7) 07/25/22 04:53 Hct 38.1 % (36.0-46.0) 07/25/22 04:53 Abnormal Lab Findings: Abnormal Labs 07/25/22 07/25/22 07/25/22 04:53 04:53 04:53 WBC 12.48 H MPV 11.2 H Glucose 121 H Alkaline Phosphatase 132 H Albumin 2.9 L TSH 7.26 H
--- NOTE | 2022-07-25 16:24 | W.PM.OBNL1 ---
Date of service: 07/25/22 Time of Service: 16:24 Informed Consent Informed Consent: Regional Anesthesia (epidural reviewed) and Other (Nitrous Oxide) Pelvic Exam Dilation: 7 Effacement (%): 90 station: -1 Cervix Position: mid Consistency: soft Contractions Monitor Mode: External Contraction Frequency(min): 3-4 Contraction Duration(sec): 60-90 Intensity: Moderate/Strong Fetus A Monitor: External (US) Heart Rate Baseline: 150 Variability: Moderate (6-25 BPM) Categories: Category I Accelerations: 15 X 15 Decelerations: None Assessment and Plan Assessment and plan (1) Normal labor: Status: Acute Assessment and plan: 1. VE done and cervix is 7 and can be stretched to 8 cm. 2. Continue present management, will rest for short time then return to frequent position changes as she has done in past 2 hours. 3. Epidural remains effective at this time, SEISMOGRAPH OPERATOR HELPER has been present to assess patient as well. 4. Continue to expect NVD. OB physician crm solution architect, Dr. Simpson updated with patient's progress. KH Objective Abnormal lab results 07/25/22 07/25/22 07/25/22 Range/Units 04:53 04:53 04:53 WBC 12.48 H (4.4-10.8) 10^3/uL MPV 11.2 H (8.0-11.0) fL Glucose 121 H (74-106) mg/dL Alkaline Phosphatase 132 H (46-116) U/L Albumin 2.9 L (3.4-5.0) g/dL TSH 7.26 H (0.36-3.74) uIU/mL Temp Pulse Resp BP Pulse Ox 98.6 F 78 18 114/69 98 07/25/22 06:52 07/25/22 13:14 07/25/22 13:01 07/25/22 13:14 07/25/22 13:01 Laboratory Results WBC 12.48 10^3/uL (4.4-10.8) H 07/25/22 04:53 RBC 4.34 10^6/uL (3.93-5.22) 07/25/22 04:53 Hgb 13.3 g/dL (11.2-15.7) 07/25/22 04:53 Hct 38.1 % (36.0-46.0) 07/25/22 04:53 MCV 88 fL (80-95) 07/25/22 04:53 MCH 30.6 pg (27.0-33.0) 07/25/22 04:53 MCHC 34.9 % (32.0-36.0) 07/25/22 04:53 RDW 12.4 % (11.7-14.6) 07/25/22 04:53 Plt Count 160 10^3/uL (130-400) 07/25/22 04:53 MPV 11.2 fL (8.0-11.0) H 07/25/22 04:53 Sodium 136 mmol/L (136-145) 07/25/22 04:53 Potassium 3.8 mmol/L (3.5-5.1) 07/25/22 04:53 Chloride 103 mmol/L (98-107) 07/25/22 04:53 Carbon Dioxide 22.1 mmol/L (21.0-32.0) 07/25/22 04:53 Anion Gap 10.9 mmol/L (3-11) 07/25/22 04:53 BUN 12 mg/dL (7-18) 07/25/22 04:53 Creatinine 0.9 mg/dL (0.55-1.02) 07/25/22 04:53 Estimated GFR/1.73 m2 >= 60.00 (mL/min/1.73m2) 07/25/22 04:53 Glucose 121 mg/dL (74-106) H 07/25/22 04:53 Calcium 8.9 mg/dL (8.5-10.1) 07/25/22 04:53 Total Bilirubin 0.3 mg/dL (0.2-1.0) 07/25/22 04:53 AST 20 U/L (15-37) 07/25/22 04:53 ALT 18 U/L (14-59) 07/25/22 04:53 Alkaline Phosphatase 132 U/L (46-116) H 07/25/22 04:53 Total Protein 7.3 g/dL (6.4-8.2) 07/25/22 04:53 Albumin 2.9 g/dL (3.4-5.0) L 07/25/22 04:53 TSH 7.26 uIU/mL (0.36-3.74) H 07/25/22 04:53 Free T4 0.95 ng/dL (0.76-1.46) 07/25/22 04:53 Membranes Rupture Positive 07/25/22 04:00 COVID-19 Source Nasal/Nares 07/25/22 04:00 SARS-CoV-2 (PCR) Negative (Negative) 07/25/22 04:00 Patient ABO/Rh A Positive 07/25/22 04:53 Antibody Screen NEGATIVE 07/25/22 04:53 Subjective Interval history since last seen: reporting more lower back pain again but overall comfortable. Continues to have clear fluid with bloody show. KH Results Hemoglobin/Hematocrit: Hgb 13.3 g/dL (11.2-15.7) 07/25/22 04:53 Hct 38.1 % (36.0-46.0) 07/25/22 04:53 Abnormal Lab Findings: Abnormal Labs 07/25/22 07/25/22 07/25/22 04:53 04:53 04:53 WBC 12.48 H MPV 11.2 H Glucose 121 H Alkaline Phosphatase 132 H Albumin 2.9 L TSH 7.26 H
--- NOTE | 2022-07-25 19:46 | PGE_ITS ---
Date of service: 07/25/22 Time of Service: 19:46 Informed Consent Informed Consent: Augmentation of Labor, Regional Anesthesia (epidural reviewed) and Other (Nitrous Oxide) Pelvic Exam Dilation: 7 Effacement (%): 90 station: 0 Position: BEBETO Cervix Position: anterior Consistency: soft Contractions Monitor Mode: Internal (placed at 1937) Contraction Frequency(min): 2-4 Contraction Duration(sec): 30-60 IUPC resting tone (mmHg): 20 IUPC peak pressure (mmHg): 60 IUPC [place] units: 100 Fetus A Monitor: External (US) Heart Rate Baseline: 125 Variability: Moderate (6-25 BPM) Categories: Category I Decelerations: None Assessment and Plan Assessment and plan (1) Irregular uterine contractions: Status: Acute Assessment and plan: 1. ROM for approximately 19 1/2 hours, afebrile with reassuring status 2. Reviewed with patient option of IUPC to verify that pitocin might be beneficial, she was hoping to avoid pitocin but agrees to it at this time if indicated by IUPC. Tolerated placement well. 3. Will observe contractions for adequate MVU in 10 minutes over 20-30 minutes and review with patient and to discuss augmentation to help with progressing labor. I reviewed risks of pitocin and advantages and that option of continued expectant management vs active management with pitocin can also be discussed but may lead to risks as well. 4. Will likely begin augmentation with pitocin in next 30 minutes with patient consent. KH Objective Abnormal lab results 07/25/22 07/25/22 07/25/22 Range/Units 04:53 04:53 04:53 WBC 12.48 H (4.4-10.8) 10^3/uL MPV 11.2 H (8.0-11.0) fL Glucose 121 H (74-106) mg/dL Alkaline Phosphatase 132 H (46-116) U/L Albumin 2.9 L (3.4-5.0) g/dL TSH 7.26 H (0.36-3.74) uIU/mL Temp Pulse Resp BP Pulse Ox 98.8 F 76 18 136/81 98 07/25/22 18:05 07/25/22 18:37 07/25/22 16:00 07/25/22 18:37 07/25/22 13:01 Laboratory Results WBC 12.48 10^3/uL (4.4-10.8) H 07/25/22 04:53 RBC 4.34 10^6/uL (3.93-5.22) 07/25/22 04:53 Hgb 13.3 g/dL (11.2-15.7) 07/25/22 04:53 Hct 38.1 % (36.0-46.0) 07/25/22 04:53 MCV 88 fL (80-95) 07/25/22 04:53 MCH 30.6 pg (27.0-33.0) 07/25/22 04:53 MCHC 34.9 % (32.0-36.0) 07/25/22 04:53 RDW 12.4 % (11.7-14.6) 07/25/22 04:53 Plt Count 160 10^3/uL (130-400) 07/25/22 04:53 MPV 11.2 fL (8.0-11.0) H 07/25/22 04:53 Sodium 136 mmol/L (136-145) 07/25/22 04:53 Potassium 3.8 mmol/L (3.5-5.1) 07/25/22 04:53 Chloride 103 mmol/L (98-107) 07/25/22 04:53 Carbon Dioxide 22.1 mmol/L (21.0-32.0) 07/25/22 04:53 Anion Gap 10.9 mmol/L (3-11) 07/25/22 04:53 BUN 12 mg/dL (7-18) 07/25/22 04:53 Creatinine 0.9 mg/dL (0.55-1.02) 07/25/22 04:53 Estimated GFR/1.73 m2 >= 60.00 (mL/min/1.73m2) 07/25/22 04:53 Glucose 121 mg/dL (74-106) H 07/25/22 04:53 Calcium 8.9 mg/dL (8.5-10.1) 07/25/22 04:53 Total Bilirubin 0.3 mg/dL (0.2-1.0) 07/25/22 04:53 AST 20 U/L (15-37) 07/25/22 04:53 ALT 18 U/L (14-59) 07/25/22 04:53 Alkaline Phosphatase 132 U/L (46-116) H 07/25/22 04:53 Total Protein 7.3 g/dL (6.4-8.2) 07/25/22 04:53 Albumin 2.9 g/dL (3.4-5.0) L 07/25/22 04:53 TSH 7.26 uIU/mL (0.36-3.74) H 07/25/22 04:53 Free T4 0.95 ng/dL (0.76-1.46) 07/25/22 04:53 Membranes Rupture Positive 07/25/22 04:00 COVID-19 Source Nasal/Nares 07/25/22 04:00 SARS-CoV-2 (PCR) Negative (Negative) 07/25/22 04:00 Patient ABO/Rh A Positive 07/25/22 04:53 Antibody Screen NEGATIVE 07/25/22 04:53 Subjective Interval history since last seen: patient is feeling less back pain and requested VE to assess for change. She is prepared to use IUPC and pitocin if indicated at this time. KH Results Hemoglobin/Hematocrit: Hgb 13.3 g/dL (11.2-15.7) 07/25/22 04:53 Hct 38.1 % (36.0-46.0) 07/25/22 04:53 Abnormal Lab Findings: Abnormal Labs 07/25/22 07/25/22 07/25/22 04:53 04:53 04:53 WBC 12.48 H MPV 11.2 H Glucose 121 H Alkaline Phosphatase 132 H Albumin 2.9 L TSH 7.26 H
[2022-07-25] MEDS: Oxytocin/Normal Saline 30 UNIT/500 ML BAG 2 UNITS IV (20:21)
[2022-07-25] MEDS: Ondansetron 4 MG/2 ML VIAL IVP (20:39)
[2022-07-25] MEDS: PANTOPRAZOLE 80 MG in Normal Saline 100 ML 10 MG IV (20:40)
--- NOTE | 2022-07-25 22:04 | PGE_ITS ---
Date of service: 07/25/22 Time of Service: 22:04 Informed Consent Informed Consent: Augmentation of Labor, Regional Anesthesia (epidural reviewed) and Other (Nitrous Oxide) Pelvic Exam Dilation: 9 Effacement (%): 100 station: 0 Position: ROP Cervix Position: anterior Consistency: soft Comments: attempted to reduce cervix with VE at 2156 without success but no restriction of cervix with contractions. Will repeat in approximately 10-15 minutes. KH Contractions Monitor Mode: Internal Contraction Frequency(min): 3-4 Contraction Duration(sec): 60 IUPC resting tone (mmHg): 22 IUPC peak pressure (mmHg): 90 IUPC [place] units: 180 Fetus A Monitor: External (US) Heart Rate Baseline: 133 Variability: Moderate (6-25 BPM) Categories: Category I Accelerations: 15 X 15 (during vaginal exam) Decelerations: Early Assessment and Plan Assessment and plan (1) Irregular uterine contractions: Status: Acute Assessment and plan: 1. SHOWER ENCLOSURE INSTALLER was able to help patient become more comfortable 2. Will assess for increase in pitocin if indicated by IUPC 3. Plan to repeat VE and assess for progress in approximately 15 minutes as patient is currently more comfortable and resting well between contraction. If no cervical change with next VE will give Dr. Simpson update on maternal status. Objective Abnormal lab results 07/25/22 07/25/22 07/25/22 Range/Units 04:53 04:53 04:53 WBC 12.48 H (4.4-10.8) 10^3/uL MPV 11.2 H (8.0-11.0) fL Glucose 121 H (74-106) mg/dL Alkaline Phosphatase 132 H (46-116) U/L Albumin 2.9 L (3.4-5.0) g/dL TSH 7.26 H (0.36-3.74) uIU/mL Temp Pulse Resp BP Pulse Ox 98.8 F 67 18 136/77 98 07/25/22 18:05 07/25/22 21:48 07/25/22 16:00 07/25/22 21:48 07/25/22 13:01 Laboratory Results WBC 12.48 10^3/uL (4.4-10.8) H 07/25/22 04:53 RBC 4.34 10^6/uL (3.93-5.22) 07/25/22 04:53 Hgb 13.3 g/dL (11.2-15.7) 07/25/22 04:53 Hct 38.1 % (36.0-46.0) 07/25/22 04:53 MCV 88 fL (80-95) 07/25/22 04:53 MCH 30.6 pg (27.0-33.0) 07/25/22 04:53 MCHC 34.9 % (32.0-36.0) 07/25/22 04:53 RDW 12.4 % (11.7-14.6) 07/25/22 04:53 Plt Count 160 10^3/uL (130-400) 07/25/22 04:53 MPV 11.2 fL (8.0-11.0) H 07/25/22 04:53 Sodium 136 mmol/L (136-145) 07/25/22 04:53 Potassium 3.8 mmol/L (3.5-5.1) 07/25/22 04:53 Chloride 103 mmol/L (98-107) 07/25/22 04:53 Carbon Dioxide 22.1 mmol/L (21.0-32.0) 07/25/22 04:53 Anion Gap 10.9 mmol/L (3-11) 07/25/22 04:53 BUN 12 mg/dL (7-18) 07/25/22 04:53 Creatinine 0.9 mg/dL (0.55-1.02) 07/25/22 04:53 Estimated GFR/1.73 m2 >= 60.00 (mL/min/1.73m2) 07/25/22 04:53 Glucose 121 mg/dL (74-106) H 07/25/22 04:53 Calcium 8.9 mg/dL (8.5-10.1) 07/25/22 04:53 Total Bilirubin 0.3 mg/dL (0.2-1.0) 07/25/22 04:53 AST 20 U/L (15-37) 07/25/22 04:53 ALT 18 U/L (14-59) 07/25/22 04:53 Alkaline Phosphatase 132 U/L (46-116) H 07/25/22 04:53 Total Protein 7.3 g/dL (6.4-8.2) 07/25/22 04:53 Albumin 2.9 g/dL (3.4-5.0) L 07/25/22 04:53 TSH 7.26 uIU/mL (0.36-3.74) H 07/25/22 04:53 Free T4 0.95 ng/dL (0.76-1.46) 07/25/22 04:53 Membranes Rupture Positive 07/25/22 04:00 COVID-19 Source Nasal/Nares 07/25/22 04:00 SARS-CoV-2 (PCR) Negative (Negative) 07/25/22 04:00 Patient ABO/Rh A Positive 07/25/22 04:53 Antibody Screen NEGATIVE 07/25/22 04:53 Subjective Interval history since last seen: SHOWER ENCLOSURE INSTALLER has been able to make epidural more effective for patient's pain relief. Denies urge to push. KH Results Hemoglobin/Hematocrit: Hgb 13.3 g/dL (11.2-15.7) 07/25/22 04:53 Hct 38.1 % (36.0-46.0) 07/25/22 04:53 Abnormal Lab Findings: Abnormal Labs 07/25/22 07/25/22 07/25/22 04:53 04:53 04:53 WBC 12.48 H MPV 11.2 H Glucose 121 H Alkaline Phosphatase 132 H Albumin 2.9 L TSH 7.26 H
--- NOTE | 2022-07-25 23:56 | W.PM.OBNL1 ---
Date of service: 07/25/22 Time of Service: 23:56 Informed Consent Informed Consent: Augmentation of Labor, Regional Anesthesia (epidural reviewed) and Other (Nitrous Oxide) Pelvic Exam Dilation: 9.5 Effacement (%): 100 station: 0 Contractions Monitor Mode: Internal Contraction Frequency(min): 2-3 Contraction Duration(sec): 60 Fetus A Monitor: External (US) Heart Rate Baseline: 135 Variability: Moderate (6-25 BPM) Categories: Category I Accelerations: 10 X 10 Decelerations: None Assessment and Plan Assessment and plan (1) Prolonged, labor, second stage: Status: Acute Assessment and plan: 1. Effective pushing effort with good contractions for 1 hour without any descent[address] Dr[address] Simpson notified and will attend. Objective Abnormal lab results 07/25/22 07/25/22 07/25/22 Range/Units 04:53 04:53 04:53 WBC 12.48 H (4.4-10.8) 10^3/uL MPV 11.2 H (8.0-11.0) fL Glucose 121 H (74-106) mg/dL Alkaline Phosphatase 132 H (46-116) U/L Albumin 2.9 L (3.4-5.0) g/dL TSH 7.26 H (0.36-3.74) uIU/mL Temp Pulse Resp BP Pulse Ox 98.8 F 67 18 136/77 98 07/25/22 18:05 07/25/22 21:48 07/25/22 16:00 07/25/22 21:48 07/25/22 13:01 Laboratory Results WBC 12.48 10^3/uL (4.4-10.8) H 07/25/22 04:53 RBC 4.34 10^6/uL (3.93-5.22) 07/25/22 04:53 Hgb 13.3 g/dL (11.2-15.7) 07/25/22 04:53 Hct 38.1 % (36.0-46.0) 07/25/22 04:53 MCV 88 fL (80-95) 07/25/22 04:53 MCH 30.6 pg (27.0-33.0) 07/25/22 04:53 MCHC 34.9 % (32.0-36.0) 07/25/22 04:53 RDW 12.4 % (11.7-14.6) 07/25/22 04:53 Plt Count 160 10^3/uL (130-400) 07/25/22 04:53 MPV 11.2 fL (8.0-11.0) H 07/25/22 04:53 Sodium 136 mmol/L (136-145) 07/25/22 04:53 Potassium 3.8 mmol/L (3.5-5.1) 07/25/22 04:53 Chloride 103 mmol/L (98-107) 07/25/22 04:53 Carbon Dioxide 22.1 mmol/L (21.0-32.0) 07/25/22 04:53 Anion Gap 10.9 mmol/L (3-11) 07/25/22 04:53 BUN 12 mg/dL (7-18) 07/25/22 04:53 Creatinine 0.9 mg/dL (0.55-1.02) 07/25/22 04:53 Estimated GFR/1.73 m2 >= 60.00 (mL/min/1.73m2) 07/25/22 04:53 Glucose 121 mg/dL (74-106) H 07/25/22 04:53 Calcium 8.9 mg/dL (8.5-10.1) 07/25/22 04:53 Total Bilirubin 0.3 mg/dL (0.2-1.0) 07/25/22 04:53 AST 20 U/L (15-37) 07/25/22 04:53 ALT 18 U/L (14-59) 07/25/22 04:53 Alkaline Phosphatase 132 U/L (46-116) H 07/25/22 04:53 Total Protein 7.3 g/dL (6.4-8.2) 07/25/22 04:53 Albumin 2.9 g/dL (3.4-5.0) L 07/25/22 04:53 TSH 7.26 uIU/mL (0.36-3.74) H 07/25/22 04:53 Free T4 0.95 ng/dL (0.76-1.46) 07/25/22 04:53 Membranes Rupture Positive 07/25/22 04:00 COVID-19 Source Nasal/Nares 07/25/22 04:00 SARS-CoV-2 (PCR) Negative (Negative) 07/25/22 04:00 Patient ABO/Rh A Positive 07/25/22 04:53 Antibody Screen NEGATIVE 07/25/22 04:53 Subjective Interval history since last seen: Patient is fatigued after trying to push for 1 hour. There is still some cervix but it moves out of the way with pushing. I reviewed that I was going to call Dr. Simpson to come as there has not been descent despite best efforts and adequate contractions. Patient verbalizes understanding. KH Results Hemoglobin/Hematocrit: Hgb 13.3 g/dL (11.2-15.7) 07/25/22 04:53 Hct 38.1 % (36.0-46.0) 07/25/22 04:53 Abnormal Lab Findings: Abnormal Labs 07/25/22 07/25/22 07/25/22 04:53 04:53 04:53 WBC 12.48 H MPV 11.2 H Glucose 121 H Alkaline Phosphatase 132 H Albumin 2.9 L TSH 7.26 H
[2022-07-26] VITALS (12 sets, daily range): BP systolic 108–158; BP diastolic 60–79; PULSE 71–88; RESP 16–18; TEMP 36.3–36.6; TEMPC 37.1; O2SAT 96–98
--- NOTE | 2022-07-26 00:39 | OBCE_ITS ---
Date of service: 07/26/22 Time of Service: 00:39 Assessment and Plan Assessment and plan (1) Prolonged, labor, second stage: Status: Acute Assessment and plan: Preop counseling: She was informed of the risks of procedure including risk of damage to bowel, bladder, and blood vessels during the time of the delivery. If any of those injuries were to occur she may require a repair at the time of surgery or blood transfusion or possible hysterectomy. I reviewed the risk of infection and the administration of IV Abx prior to the surgery. Lastly there is a possibility of injury to the fetus at the time of delivery or entry into the uterine cavity. Patient signed the informed consent her questions were answered. History of Present Illness History of Present Illness Chief Complaint: Arrest of descent Narrative: Patient is a 26-year-old G1, P0 female currently 40 W6D EGA who was admitted with spontaneous rupture membranes at 03:00 on 07/25/2022. She received a labor analgesia at 4 cm dilation and began Pitocin augmentation at 7 cm dilation. At approximately 9 cm cervical dilation she began to feel the urge to push despite the labor analgesia she has had increasing pain with contractions and despite excellent maternal expulsive efforts there has been no descent beyond 0 station. heart rate has been reassuring throughout her entire hospital course. After consultation with Leola Valencia CNM decision was made to proceed with a delivery for arrest of descent. Consults Consult date: 07/26/22 Requesting physician: Gena Valencia Review of Systems All systems reviewed & are unremarkable except as noted in HPI and below PFSH All Active Problems (Updated 07/26/22 @ 00:00 by Gena Valencia CNM) Prolonged, labor, second stage (Acute) Irregular uterine contractions (Acute) Normal labor (Acute) Vaginal discharge in third trimester, antepartum (Acute) Uterine contractions (Acute) COVID-19 virus infection (Acute) Antepartum bleeding, second trimester (Acute) Elevated TSH (Acute) Susceptible to varicella (non-immune), currently (Acute) (Acute) Medical History Lipoma Pelvic pain Vaginal discharge during , antepartum Surgical History Hx of tonsillectomy Social History Smoking/Tobacco Use Status: Never Smoking risk assessment performed?: Yes Alcohol Intake: current Alcohol Intake frequency: a few times a month Drug use: Never Substance use type: does not use Adopted: No Caregiver/Support person: No Foster care: No Household members: spouse Housing: house Communication Needs: None Education Level: college Do you need help understanding health information?: Never 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 and animals: Yes Pets and animals: dog(s) Sexually active: Yes Do you think of yourself as: straight/heterosexual Current gender identity: female What is your relationship status?: How often do you talk on the phone with friends or family?: three or more times per week How often do you attend congregation or restorationism services?: decline to answer Do you belong to any clubs or organized social groups?: yes Panel score (0-1 are the most socially isolated patients): 3 What type of physical activity do you participate in: weight lifting Frequency: 3-4 times per week Seatbelt use: always Helmet use: Yes Drive intox or ride w/intox delivery driver/supervisor: No Water heater temp set <120 deg: Yes Working smoke detector in home: Yes Fire extinguisher in home: Yes Carbon monox detector in home: Yes Firearms in home: Yes Do you feel safe at home: Yes Do you feel safe in your relationship?: Yes Victim of physical abuse: No Victim of emotional abuse: No Victim of sexual abuse: No Female Reproductive History Menstrual Duration of menses: 6-7 days control method: natural family planning History History 1 Para 0 Hx # Term Pregnancies 0 Multiple births 0 Hx # Pregnancies 0 Ectopic pregnancies 0 AB induced 0 Hx Number of Living Children 0 AB spontaneous 0 Exam Const General: cooperative and acute distress (Vocalizations during contractions) moderate Nutritional Appearance: average body habitus Orientation: alert, awake and oriented x3 Resp Effort & Inspection: normal respiratory effort Auscultation: clear to auscultation bilaterally Cardio Rate: regular rate Rhythm: regular rhythm GI Palpation: other (No focal uterine tenderness) General: deferred Manual OB Exam: dilated 9, effaced fully and station 0 Amniotic Fluid: clear Extrem General: normal to inspection Psych Appearance: grossly normal Mental Status: mental status grossly normal Speech and Movement: speech and movement normal (Patient admits to exhaustion and requested delivery.) Results Last Vital Signs Temp 98.8 F 07/25/22 18:05 Pulse 67 07/25/22 21:48 Resp 18 07/25/22 16:00 BP 136/77 07/25/22 21:48 Pulse Ox 98 07/25/22 13:01 Labs Result diagrams: 07/25/22 04:53 07/25/22 04:53 Labs: Laboratory Results - last 24 hr 07/25/22 07/25/22 07/25/22 04:00 04:00 04:53 WBC 12.48 H RBC 4.34 Hgb 13.3 Hct 38.1 MCV 88 MCH 30.6 MCHC 34.9 RDW 12.4 Plt Count 160 MPV 11.2 H Sodium Potassium Chloride Carbon Dioxide Anion Gap BUN Creatinine Estimated GFR/1.73 m2 Glucose Calcium Total Bilirubin AST ALT Alkaline Phosphatase Total Protein Albumin TSH Free T4 Membranes Rupture Positive COVID-19 Source Nasal/Nares SARS-CoV-2 (PCR) Negative Patient ABO/Rh Antibody Screen 07/25/22 07/25/22 07/25/22 04:53 04:53 04:53 WBC RBC Hgb Hct MCV MCH MCHC RDW Plt Count MPV Sodium 136 Potassium 3.8 Chloride 103 Carbon Dioxide 22.1 Anion Gap 10.9 BUN 12 Creatinine 0.9 Estimated GFR/1.73 m2 >= 60.00 Glucose 121 H Calcium 8.9 Total Bilirubin 0.3 AST 20 ALT 18 Alkaline Phosphatase 132 H Total Protein 7.3 Albumin 2.9 L TSH 7.26 H Free T4 0.95 Membranes Rupture COVID-19 Source SARS-CoV-2 (PCR) Patient ABO/Rh A Positive Antibody Screen NEGATIVE
[2022-07-26] MEDS: AZITHROMYCIN 500 MG in Normal Saline 250 ML 250 MG IVPB (00:46)
[2022-07-26] MEDS: Sodium Citrate 30 ML CUP PO (00:55)
[2022-07-26] MEDS: ceFAZolin 2 GM/50 ML BAG IVPB (01:48)
[2022-07-26] MEDS: Bupivacaine 0.25% Pres-Free 30 ML VIAL (02:21)
--- NOTE | 2022-07-26 02:52 | W.PM.OBCSECT ---
Date of service: 07/26/22 Time of Service: 02:52 Operative Note Operative Note Delivery Method: Unscheduled STAT: No and Primary [id number]>[id number] Weeks: Yes DATE OF PROCEDURE: 07/26/22 PRE-OP DIAGNOSES: Arrest of descent POST-OP DIAGNOSES: same PROCEDURE: Primary low transverse delivery SURGEON: Wilma Simpson Assisting Surgeon: Gena Valencia Anesthesia: spinal Estimated blood loss (mL): 350 Pathology: none sent Complications: None Patient was transported to: floor Patient's condition: stable Indications: 26-year-old G1 female at 40 W5D EGA who presented with spontaneous rupture membranes early in the morning of 07/25/2022. She had slow cervical dilation required oxytocin augmentation of labor. Despite adequate contractions and excellent maternal expulsive efforts the vertex never descended below 0 station. Findings: Viable male in the LOT position. weight: 8lb3oz Apgars 8/9 . Clear amniotic fluid, normal uterus, normal adnexa, normal pelvis. His parents intend to name him Omaira. Procedure Description: Patient was taken to the operating room she is placed in the sitting position and the epidural catheter removed without difficulty. Spinal anesthesia was then administered without difficulty. She was then placed in the dorsal supine position with a leftward tilt. SCDs and a Mcgee catheter to gravity drainage were in place. A vaginal prep with Betadine was performed and the patient was prepped and draped in the usual sterile fashion. Surgical timeout was performed. After a adequate level of anesthesia was achieved a Pfannenstiel skin incision was made approximately 2 cm superior to the pubic symphysis using a scalpel and the underlying subcutaneous tissue dissected using Bovie electrocautery to the level of the rectus fascia. The rectus fascia was then nicked in the midline and the fascial incision extended laterally using curved Zapien scissors. 2 Ivis clamps were applied to the inferior rectus fascia and the rectus fascia was dissected off of the underlying rectus muscles using Bovie electrocautery and blunt technique. A similar technique was carried out on the superior rectus fascia. Rectus muscles were then in the midline and the peritoneum entered bluntly. The peritoneal incision was extended laterally using blunt technique. The vesicle-uterine peritoneum over lower uterine segment was incised with curved Zapien scissors and the bladder flap created bluntly. The bladder was once again retracted away from the operative field with the bladder blade. A scalpel was used to incise the lower uterine segment in a transverse fashion. The uterine incision was extended bluntly and the amniotic sac was ruptured with clear amniotic fluid noted. A single gloved hand was placed into the uterine cavity and the head was successfully delivered through the uterine incision followed by the trunk and extremities with the assistance of fundal pressure. The cord was doubly clamped and cut and the handed off to the waiting pediatric team. Cord blood was obtained and the placenta was extracted with a combination of fundal massage and gentle cord traction. The uterus was exteriorized cleared of all clots and debris and the uterine incision reapproximated with a running lock suture of 0 Vicryl followed by a second imbricating suture of 0 Vicryl. Uterine incision was noted be hemostatic. The uterus was returned to the abdomen and the paracolic gutters cleared of all clots and debris. Uterine incision and the along with the bladder flap and the abdominal wall were all inspected and noted to be hemostatic. The rectus fascia was reapproximated with a running suture of 0 Vicryl. space within the subcutaneous tissue closed with a running suture of 2-0 Vicryl. The skin incision was reapproximated with a subcuticular closure of 4-0 Monocryl. Skin incision was reapproximated with Steri-Strips and covered with a sterile dressing. The uterus was massaged for any remaining clots and debris's. The patient was transported to recovery area in stable condition. All sponge, lap, and needle counts correct x2.
[2022-07-26 07:06] LABS: Abs Immature Grans 0.14 10^3/uL (0.0-0.06); Absolute Basophil Count 0.04 10^3/uL (0.0-0.2); Absolute Lymphocyte Count 1.13 10^3/uL (1.2-3.4); Absolute Neutrophil Count 17.27 10^3/uL (1.2-6.7); Basophils % 0.2; HCT 29.7 % (36.0-46.0); Immature Grans % 0.7; Lymphocytes % 5.7; MCH 31.8 pg (27.0-33.0); MCHC 36.7 % (32.0-36.0); MCV 87 fL (80-95); MPV 10.9 fL (8.0-11.0); Monocytes % 6.2; Neutrophils % 87.2; Platelet Count 136 10^3/uL (130-400); RBC 3.43 10^6/uL (3.93-5.22); RDW 12.8 % (11.7-14.6); RDW-SD 40.3 fL
[2022-07-26 07:08] LABS: Absolute Monocyte Count 1.23 10^3/uL (0.1-0.8)
[2022-07-26 07:09] LABS: HGB 10.9 g/dL (11.2-15.7)
--- NOTE | 2022-07-26 07:13 | W.ANESPOSTOP ---
Postoperative Evaluation Date, Time and Location Date Performed: 07/26/22 Time Performed: 07:14 Patient Location: Day Surgery Unit Vital Signs Most Recent Imported Vital Signs: Most Recent Vital Signs Temp Pulse Resp BP Pulse Ox 37.1 C 71 18 111/60 98 07/25/22 18:05 07/26/22 06:20 07/25/22 16:00 07/26/22 06:20 07/25/22 13:01 Most Recent Manually Entered Vital Signs: Adult Blood Pressure: 111/60 Heart Rate: 71 Respirations: 18 Oxygen Saturation (%): 98 Temperature (C): 37.1 C Pain Score (0-10 Scale): 0 Assessment Mental Status: Awake (Alert & Oriented to Patient Baseline) Airway and Respiratory Function: Patent airway with normal (patient baseline) respiratory exam Cardiovascular Function: Hemodynamically Stable Hydration Status: Adequately Hydrated Nausea & Vomiting: No Nausea or Vomiting Pain: Pt. Denies Any Pain Peripheral Nerve Block: Patient did not receive a nerve block
[2022-07-26] MEDS: Ketorolac 30 MG/ML VIAL IVP ×3 (08:36→21:03)
[2022-07-26] MEDS: Normal Saline Flush 10 ML SYR IVP ×3 (08:37→21:03)
[2022-07-26] MEDS: Acetaminophen 325 MG TAB 650 MG PO ×2 (10:52→17:18)
--- NOTE | 2022-07-26 17:21 | W.PM.OBPNV1 ---
Date of service: 07/26/22 Time of Service: 17:21 Subjective Subjective Interval history: Patient seen and examined postoperative day 0. Doing well. Mcgee catheter is out. She has been ambulating. She is breast-feeding without difficulty. She is tolerating regular diet. All of her questions were answered today. She will be seen again tomorrow. She is circumcision for her son. She will be performed on Friday Exam Physical Exam Vital signs: Temp Pulse Resp BP Pulse Ox 98.8 F 71 18 111/60 98 07/25/22 18:05 07/26/22 06:20 07/25/22 16:00 07/26/22 06:20 07/25/22 13:01 Results Hemoglobin/Hematocrit: Hgb 10.9 g/dL (11.2-15.7) L D 07/26/22 06:45 Hct 29.7 % (36.0-46.0) L 07/26/22 06:45 Abnormal Lab Findings: Abnormal Labs 07/25/22 07/25/22 07/25/22 04:53 04:53 04:53 WBC 12.48 H RBC Hgb Hct MCHC MPV 11.2 H Absolute Neutrophils Absolute Lymphocytes Absolute Monocytes Glucose 121 H Alkaline Phosphatase 132 H Albumin 2.9 L TSH 7.26 H 07/26/22 06:45 WBC 19.80 H RBC 3.43 L Hgb 10.9 L D Hct 29.7 L MCHC 36.7 H MPV Absolute Neutrophils 17.27 H Absolute Lymphocytes 1.13 L Absolute Monocytes 1.23 H Glucose Alkaline Phosphatase Albumin TSH
[2022-07-27] MEDS: Acetaminophen 325 MG TAB 650 MG PO ×4 (05:27→22:24)
[2022-07-27] MEDS: Ibuprofen 600 MG TAB PO ×3 (05:27→20:23)
[2022-07-27 08:25] VITALS: BP 113/71; PULSE 65; RESP 16; TEMP 36.5; O2SAT 95
[2022-07-27] MEDS: Docusate Sodium 100 MG CAP PO ×2 (08:50→18:02)
--- NOTE | 2022-07-27 09:06 | W.PM.OBPNV1 ---
Date of service: 07/27/22 Time of Service: 09:06 Assessment and Plan Assessment and plan (1) Status post primary low transverse section: Status: Acute Assessment and plan: Postoperative day #1 status post primary transverse section. Doing well. Patient requests circumcision. Breast-feeding well. anticipate discharge home Tomorrow Subjective Subjective Interval history: Patient seen and examined this morning. She has been ambulating and passing gas. She does have some abdominal discomfort and mild distention. She has had difficulty with bowel movements in her , and she is using Colace at this point. Patient comments: No complaints, Incisional pain and Tolerating diet Patient's Mood: good [place] baby status: Doing well and Nursing well [place] feeding status: Exclusively breast feeding Exam Physical Exam Vital signs: Temp Pulse Resp BP Pulse Ox 97.3 F L 73 18 119/77 96 07/26/22 22:30 07/26/22 22:30 07/26/22 22:30 07/26/22 22:30 07/26/22 22:30 Vital Signs Reviewed: Yes Constitutional Constitutional: no acute distress and cooperative HEENT Exam HEENT Exam: Normal Respiratory Exam Respiratory Exam: Normal Cardiovascular Exam Cardiovascular Exam: Normal Abdominal Exam Abdomen: Tender Comments: Soft, Fundal Exam Fundus: Below Umbilicus Extremities Exam Extremity Exam: Normal; negative Calf Tenderness or Edema Skin Exam Skin Exam: Normal Neurological Exam Neurological Exam: Normal Psychiatric Exam Psychiatric Exam: Normal Results Hemoglobin/Hematocrit: Hgb 10.9 g/dL (11.2-15.7) L D 07/26/22 06:45 Hct 29.7 % (36.0-46.0) L 07/26/22 06:45 Abnormal Lab Findings: Abnormal Labs 07/25/22 07/25/22 07/25/22 04:53 04:53 04:53 WBC 12.48 H RBC Hgb Hct MCHC MPV 11.2 H Absolute Neutrophils Absolute Lymphocytes Absolute Monocytes Glucose 121 H Alkaline Phosphatase 132 H Albumin 2.9 L TSH 7.26 H 07/26/22 06:45 WBC 19.80 H RBC 3.43 L Hgb 10.9 L D Hct 29.7 L MCHC 36.7 H MPV Absolute Neutrophils 17.27 H Absolute Lymphocytes 1.13 L Absolute Monocytes 1.23 H Glucose Alkaline Phosphatase Albumin TSH
[2022-07-27 20:15] VITALS: BP 131/84; PULSE 71; RESP 16; TEMP 36.6; O2SAT 98
[2022-07-28 07:40] VITALS: BP 107/70; PULSE 73; RESP 19; TEMP 36.3; O2SAT 98
[2022-07-28] MEDS: Ibuprofen 600 MG TAB PO ×2 (08:20→15:05)
[2022-07-28] MEDS: Acetaminophen 325 MG TAB 650 MG PO ×2 (08:20→13:28)
[2022-07-28] MEDS: Docusate Sodium 100 MG CAP PO (08:27)
--- NOTE | 2022-07-28 08:47 | W.PM.OBPNV1 ---
Date of service: 07/28/22 Time of Service: 08:47 Assessment and Plan Assessment and plan (1) Status post primary low transverse section: Status: Acute Assessment and plan: POD# 2 S/P primary section. D/C home today. Follow up in 2 and 6 weeks Subjective Subjective Interval history: Patient seen. Doing well. D/C home today Patient's Mood: Good [place] baby status: Doing well and Nursing well [place] feeding status: Exclusively breast feeding Exam Physical Exam Vital signs: Temp Pulse Resp BP Pulse Ox 97.3 F L 73 19 107/70 98 07/28/22 07:40 07/28/22 07:40 07/28/22 07:40 07/28/22 07:40 07/28/22 07:40 Vital Signs Reviewed: Yes Notable Details: none Constitutional Constitutional: no acute distress Neck Exam Neck Exam: Normal Respiratory Exam Respiratory Exam: Normal Cardiovascular Exam Cardiovascular Exam: Normal Abdominal Exam Abdomen: Tender Fundal Exam Fundus: Below Umbilicus and Firm Extremities Exam Extremity Exam: Normal; negative Calf Tenderness or Edema Neurological Exam Neurological Exam: Normal Psychiatric Exam Psychiatric Exam: Normal Results Hemoglobin/Hematocrit: Hgb 10.9 g/dL (11.2-15.7) L D 07/26/22 06:45 Hct 29.7 % (36.0-46.0) L 07/26/22 06:45 Abnormal Lab Findings: Abnormal Labs 07/25/22 07/25/22 07/25/22 04:53 04:53 04:53 WBC 12.48 H RBC Hgb Hct MCHC MPV 11.2 H Absolute Neutrophils Absolute Lymphocytes Absolute Monocytes Glucose 121 H Alkaline Phosphatase 132 H Albumin 2.9 L TSH 7.26 H 07/26/22 06:45 WBC 19.80 H RBC 3.43 L Hgb 10.9 L D Hct 29.7 L MCHC 36.7 H MPV Absolute Neutrophils 17.27 H Absolute Lymphocytes 1.13 L Absolute Monocytes 1.23 H Glucose Alkaline Phosphatase Albumin TSH
--- NOTE | 2022-07-28 09:07 | DSE_ITS ---
Date of service: 07/28/22 Time of Service: 09:07 DS: Diagnosis Discharge Diagnosis (1) Status post primary low transverse section: Status: Acute Asessment and Plan: Discharge home today. Instructions given. Follow up in 2 and 6 weeks Discharge Plan Disposition Patient Disposition: HOME Condition: Good Discharge Details Reason For Visit: Spontaneous Rupture of membranes Admit Date/Time: 07/25/22 04:42 Admit Provider: Gena Valencia Attending Provider: Gena Valencia Primary Care Provider: Unknown,Unknown Hospital Course Hospital Course: Patient was admitted to the center in early active labor. She had confirmed ROM. She had a labor course complicated by labor arrest, and went on to a primary low transverse section. Her post operative course was uncomplicated, and she was discharged to home post operative day # 2, ambulating , tolerating a regular diet, with oral pain medication. Follow up will be in 2 and 6 weeks Home Meds and New Rx's Prescriptions: New ibuprofen 800 mg tablet 800 mg PO Q8H PRNQty: 60 1RF oxycodone-acetaminophen [Percocet] 5-325 mg tablet 1 tab PO TID PRNQty: 10 0RF Continued prenat.vits,roshan,kpv-[id number] Tablet 1 tab PO DAILY vit D3-vit K2-olive leaf ext 25 mcg-20 mcg- 250 mg capsule 1 cap PO 1XD PRN omega-3 fatty acids 1,250 mg capsule 1,250 mg PO DAILY Women's Probiotic 25B cell-25B cell-50 mg capsule 1 cap PO DAILY Discharge Instructions Additional Instructions: Follow up in [facility] in 2 and 6 weeks Stand Alone Forms: BC Discharge Instruc Activity:: Pelvic rest and no heavyi Equipment/Supplies:: No Equipment Needed Diet:: As Tolerated Discharge Orders Discharge Orders: Discharge Order (Routine); Ordered 07/28/22 Ordered By: Maddie Stover OB:DS Summary Summary Delivery Method: Primary Contraception Discussed Contraception Discussed: Yes Contraceptive Plan: Undecided, [place] Gender-Baby A: Male weight: 8 lb 3.572 oz Status at Discharge Functional status at discharge: independent ambulation Overall status at discharge: patient is progressing back to baseline Mental Status: mental status grossly normal Speech and Movement: speech and movement normal Mood: congruent mood Affect: normal affect Exam Physical Exam Vital signs: Temp Pulse Resp BP Pulse Ox 97.3 F L 73 19 107/70 98 07/28/22 07:40 07/28/22 07:40 07/28/22 07:40 07/28/22 07:40 07/28/22 07:40 Narrative: See exam from progress note dated 07/28/2022 PFSH All Active Problems (Updated 07/28/22 @ 09:09 by Maddie Stover DO) Status post primary low transverse section (Acute) (Acute) Medical History (Updated 07/28/22 @ 09:09 by Maddie Stover DO) COVID-19 virus infection Elevated TSH [place] Pelvic pain Susceptible to varicella (non-immune), currently Booster given 07/28/2022 Vaginal discharge during , antepartum Surgical History (Updated 07/27/22 @ 09:08 by Maddie Stover DO) Hx of tonsillectomy Social History Smoking/Tobacco Use Status: Never Smoking risk assessment performed?: Yes Alcohol Intake: current Alcohol Intake frequency: a few times a month Drug use: Never Substance use type: does not use Adopted: No Caregiver/Support person: No Foster care: No Household members: spouse Housing: house Communication Needs: None Education Level: college Do you need help understanding health information?: Never 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 and animals: Yes Pets and animals: dog(s) Sexually active: Yes Do you think of yourself as: straight/heterosexual Current gender identity: female What is your relationship status?: How often do you talk on the phone with friends or family?: three or more times per week How often do you attend nondenominational or bahai services?: decline to answer Do you belong to any clubs or organized social groups?: yes Panel score (0-1 are the most socially isolated patients): 3 What type of physical activity do you participate in: weight lifting Frequency: 3-4 times per week Seatbelt use: always Helmet use: Yes Drive intox or ride w/intox straddle truck driver: No Water heater temp set <120 deg: Yes Working smoke detector in home: Yes Fire extinguisher in home: Yes Carbon monox detector in home: Yes Firearms in home: Yes Do you feel safe at home: Yes Do you feel safe in your relationship?: Yes Victim of physical abuse: No Victim of emotional abuse: No Victim of sexual abuse: No Female Reproductive History Menstrual Duration of menses: 6-7 days control method: natural family planning History History 1 Para 0 Hx # Term Pregnancies 0 Multiple births 0 Hx # Pregnancies 0 Ectopic pregnancies 0 AB induced 0 Hx Number of Living Children 0 AB spontaneous 0 DS: Data Vitals/I&O Vitals and I&O: Vital Signs Temperature 97.3 F L 07/28/22 07:40 Temperature Source Oral 07/28/22 07:40 Pulse 73 07/28/22 07:40 Pulse Rhythm Regular 07/27/22 22:54 Respiratory Rate 19 07/28/22 07:40 Respiratory Depth Normal 07/27/22 22:54 Blood Pressure 107/70 07/28/22 07:40 Blood Pressure Mean 99 07/27/22 20:15 Pulse Oximetry 98 07/28/22 07:40 Oxygen Delivery Method Room Air 07/28/22 07:40 Oxygen Flow Rate 0 07/28/22 07:40 Pain Level 3 07/26/22 17:18 Intake & Output 07/27/22 07/27/22 07/28/22 11:59 23:59 11:59 Output Total 650 / 650 Balance -650 / -650 Output: Urine 650 / 650 Other: Urine Color Yellow
[2022-07-28] MEDS: Varicella Virus Vaccine (Live) 0.5 ML SC (12:18)
== END 2022-07-28 15:30 | disposition home or self-care (01) | DRG 788 ==
PROVIDERS: Obstetrics & Gynecology Gynecology; Admitting Provider Advanced Practice Midwife; Visit Provider Advanced Practice Midwife
PROC: 10D00Z1 Extraction of Products of Conception, Low, Open Approach (ICD-10-PCS; CPT 59514; principal; 2022-07-26 01:05)
DX: O75.89 Other specified complications of labor and delivery (principal); O63.1 Prolonged second stage (of labor); Z37.0 Single live birth; O62.1 Secondary uterine inertia; Z3A.41 41 weeks gestation of pregnancy; N89.8 Other specified noninflammatory disorders of vagina; Z20.822 Contact with and (suspected) exposure to COVID-19
CPT/HCPCS: 59514; 36415; 80053; 84112; 85027; 86850; 86900; 86901; 87635; 84439; 84443; 85025; J0456; J0690; J1885; J2370; J2405; J3010; J3490

== ENCOUNTER 2023-09-16 11:33 | Outpatient (REF) | payer BC, SELFPAY | END 2023-09-16 11:34 | disposition home or self-care (01) | LOC: LBN 11:33 | PROVIDERS: Visit Provider Nurse Practitioner Women's Health | DX: N76.0 Acute vaginitis (principal) | CPT/HCPCS: 87480; 87510; 87660 ==

== ENCOUNTER 2024-07-27 09:40 | Outpatient (REF) | payer BC, SELFPAY ==
--- NOTE | 2024-07-27 09:25 | PAPFT_PTH ---
PATIENT: Ilsa Yi LOC: [facility] U#:[id number] AGE/SX: 28/F ROOM: RE07/27/[address]: Zita Madden NP : 1995 BED: DIS: 07/27/2024 SPEC #: [id number] RECD: 07/27/24 13:09 STATUS: LYN REKal #: [id number] JOCELYN: 07/27/24 09:[address]: Zita Madden NP DEPT: [facility] Cytology RECD BY: Latrice Bonilla ENTERED: 07/27/24 13:09 SP TYPE: PAPFT OT DR: Unknown,Unknown Tissues: 1 - CX/ENDOCX FOR PAP SMEARS Procedures: PAP THIN PREP/[facility] Screening Comments: [id number]
== END 2024-07-27 09:41 | disposition home or self-care (01) ==
LOC: LBN 09:40
PROVIDERS: Visit Provider Nurse Practitioner Women's Health
DX: Z12.4 Encounter for screening for malignant neoplasm of cervix (principal)
CPT/HCPCS: 88142

== ENCOUNTER 2024-09-29 01:35 | Outpatient (CLI) | payer BC, SELFPAY ==
[2024-09-29 15:42] LABS: Abs Immature Grans 0.03 10^3/uL (0.0-0.06); Absolute Basophil Count 0.05 10^3/uL (0.0-0.2); Absolute Lymphocyte Count 2.62 10^3/uL (1.2-3.4); Absolute Monocyte Count 0.55 10^3/uL (0.1-0.8); Absolute Neutrophil Count 6.47 10^3/uL (1.2-6.7); Basophils % 0.5 %; HCT 38.3 % (36.0-46.0); HGB 13.2 g/dL (11.2-15.7); Immature Grans % 0.3 %; Lymphocytes % 26.7 %; MCH 29.9 pg (27.0-33.0); MCHC 34.5 % (32.0-36.0); MCV 87 fL (80-95); MPV 9.1 fL (8.0-11.0); Monocytes % 5.6 %; Neutrophils % 65.9 %; Platelet Count 226 10^3/uL (130-400); RBC 4.41 10^6/uL (3.93-5.22); RDW-SD 40.6 fL; WBC 9.82 10^3/uL (4.4-10.8)
[2024-09-29 16:53] LABS: TSH 2.26 uIU/mL (0.36-3.74)
[2024-09-29 17:18] LABS: FREE T4 0.91 ng/dL (0.76-1.46)
[2024-09-29 23:19] LABS: Thyroperoxidase Antibody <28 U/mL (<=60)
[2024-09-30 09:36] LABS: HIV-1/2 Ag & Ab Screen Negative (Negative)
[2024-09-30 09:42] LABS: Rubella IgG Ab (UVM) Positive (See Note)
[2024-09-30 09:44] LABS: Varicella IgG Antibody Positive (See Note)
[2024-09-30 14:53] LABS: Hepatitis B Surface Ag Negative (Negative)
[2024-09-30 15:58] LABS: Hepatitis C Ab w Rflx HCV PCR Negative (Negative)
[2024-10-01 19:18] LABS: Syphilis IgG w/Reflex Nonreactive (Nonreactive)
[2024-10-05 13:57] LABS: 25-Hydroxy D Total 48 ng/mL; 25-Hydroxy D2 <4.0 ng/mL; 25-Hydroxy D3 48 ng/mL
== END 2024-09-29 01:36 | disposition home or self-care (01) ==
LOC: LBO 01:35
PROVIDERS: Visit Provider Advanced Practice Midwife
DX: Z34.91 Encounter for supervision of normal pregnancy, unspecified, first trimester (principal); R79.89 Other specified abnormal findings of blood chemistry
CPT/HCPCS: 36415; 82306; 86787; 86803; 86850; 86900; 86901; 87340; 87389; 84439; 84443; 85025; 86376; 86762; 86780

== ENCOUNTER 2024-09-29 15:24 | Outpatient (REF) | payer BC, SELFPAY ==
[2024-09-30 12:40] LABS: Chlamydia Result Negative (Negative); GC Result Negative (Negative)
== END 2024-09-29 15:25 | disposition home or self-care (01) ==
LOC: LBN 15:24
PROVIDERS: Visit Provider Advanced Practice Midwife
DX: Z34.91 Encounter for supervision of normal pregnancy, unspecified, first trimester (principal); Z3A.08 8 weeks gestation of pregnancy
CPT/HCPCS: 87491; 87591; 87086

== ENCOUNTER 2024-12-12 12:56 | Outpatient (CLI) | payer BC, SELFPAY ==
[2024-12-12 13:48] VITALS: BP 128/77; PULSE 73
[2024-12-12 13:57] VITALS: BP 128/77; PULSE 73; RESP 16; TEMP 36.4
[2024-12-12 14:19] LABS: Bilirubin Negative (Negative); Blood Small (Negative); Clarity Clear (Clear); Glucose Negative (Negative); Ketones Negative (Negative); Leukocyte Esterase Negative (Negative); Nitrite Negative (Negative); Specific Gravity 1.015 (1.005-1.025); Urobilinogen 0.2 mg/dL (Up to 0.2)
[2024-12-12 14:27] LABS: Bacteria Rare HPF (Negative); C & S Indicated? No; Casts Negative LPF (Negative); Crystals Negative HPF (Negative); Epithelial Cells Rare HPF (Negative); Mucus Negative (Negative); WBC 0-2 HPF (0-5)
== END 2024-12-12 14:42 ==
LOC: BCD 12:57 → OBS 13:10
PROVIDERS: PCP Advanced Practice Midwife; Visit Provider Advanced Practice Midwife
DX: O26.892 Other specified pregnancy related conditions, second trimester (principal); R10.31 Right lower quadrant pain; Z3A.21 21 weeks gestation of pregnancy
CPT/HCPCS: 81003; 81015; 87086

== ENCOUNTER 2024-12-28 12:04 | Outpatient (REF) | payer BC, SELFPAY | END 2024-12-28 12:05 | disposition home or self-care (01) | LOC: LBN 12:04 | PROVIDERS: PCP Advanced Practice Midwife; Visit Provider Advanced Practice Midwife | DX: Z34.92 Encounter for supervision of normal pregnancy, unspecified, second trimester (principal); M62.89 Other specified disorders of muscle; Z3A.23 23 weeks gestation of pregnancy | CPT/HCPCS: 87480; 87510; 87660 ==

== ENCOUNTER 2025-01-25 02:38 | Outpatient (CLI) | payer BC, SELFPAY ==
[2025-01-25 10:35] LABS: HCT 35.1 % (36.0-46.0); HGB 12.3 g/dL (11.2-15.7); MCH 31.4 pg (27.0-33.0); MCV 90 fL (80-95); MPV 9.2 fL (8.0-11.0); Platelet Count 222 10^3/uL (130-400); RBC 3.92 10^6/uL (3.93-5.22); RDW 13.2 % (11.7-14.6); RDW-SD 43.4 fL; WBC 9.36 10^3/uL (4.4-10.8)
[2025-01-25 11:00] LABS: Glucose,1 Hr (Glucola) 110 mg/dL (80-140)
== END 2025-01-25 02:39 | disposition home or self-care (01) ==
PROVIDERS: PCP Advanced Practice Midwife; Visit Provider Advanced Practice Midwife
DX: Z34.92 Encounter for supervision of normal pregnancy, unspecified, second trimester (principal)
CPT/HCPCS: 36415; 82950; 85027